=== PATIENT | female | born 1970 | race Caucasian/White ===

== ENCOUNTER 2024-12-19 18:39 | Inpatient (IN) | payer OTHER, SELFPAY ==
--- OUTSIDE RECORDS SUMMARY | 2023-06-07 01:31 | XMS_ITS | Continuity of Care Document ---
Author Organization [facility] Address [address] [address] [place] [address] Phone Care Team Providers Care Barber Instructor Name Role Phone Verito Zayas CRNA Unavailable Unavailabl e Allergies, Adverse Reactions, Alerts Substance Reaction Status Criticality No Known Allergies Active No Inform ation Medications Medication Instructions Dosage Effective Dates (start - stop) Status Comments topiramate 25 mg sprinkle capsule take 1 capsule by oral route 2 times every day (1 in the morning and 2 at night) 25 MG - Active Procedures Procedure Date Colonoscopy Flex; W/remov Les- 24 Level Iv-surg Path Gross/micro Advance Directives Directive Yes / No Effective Date File Name No Information Encounters Encounter Description Practice Location Reason(s) For Visit Diagnoses Date Provider Providers Copied on Encounter [facility], [address] [address], [place], [id number], [place] tel:[phone] [facility] No Information 4 Chana Sellers . [address] [place] [address], [facility] [address], [place], [place], [id number] , [place]. tel:[phone] Referring Provider: Robin Merchant MD, [address] [facility] [address], [place], [address] . tel:[phone] [facility], [address] [address], [place] [facility] [id number], [place] tel:[phone] [facility] GI Symptoms or Concerns (chief complaint) Personal history of colonic polypsRedundant colonColorectal polyp detected on colonoscopyEncounte r for screening for malignant neoplasm of colonBenign neoplasm of descending colon 4 Mayur Kelly. [address] [facility], [place], [place], [id number] , [place]. tel:[phone] Referring Provider: Referral Self, USE FOR SELF REFERRALS. [facility], [address] [address], [place], [id number], [place] tel:[phone] [facility] No Information 4 Ricci Armendariz. [address] [facility], [place], [place], [id number] , [place]. [phone] Family History Family Member Type Diagnosis Age At Onset Father Problem (finding) Colon polyps Father Problem (finding) Cancer, prostate Mother Problem (finding) Alcoholism Father Problem (finding) Cancer, bladder Mother Problem (finding) Crohn's disease Mother Problem (finding) Pancreatitis Immunizations Vaccine Date Status Comments zoster vaccine recombinant administered N ote: [facility] bi-directional interface ; Source: Other Registry zoster vaccine recombinant administered N ote: [facility] bi-directional interface ; Source: Other Registry SARS-COV-2 (COVID-19) vaccin e, mRNA, spike protein, LNP, preservative free, mendel-sucrose, 30 mcg/0.3 mL dose administered Note: [facility] bi-direct ional interface ; Source: Other Registry Influenza, injectable, Madin Josie Canine Kidney, preservative free, quadrivalent administered Note: DE IC bi- directional interface ; Source: Other Registry tetanus toxoid, reduced diphtheria toxoid, and acellular pertussis vaccine, adsorbed administered Note: [facility] b i-directional interface ; Source: Other Registry influenza virus vaccine, peña e, attenuated, for intranasal use administered Note: MII C bi- directional interface ; Source: Other Registry diphtheria and tetanus toxoi ds, adsorbed for pediatric use administered Note: [facility] bi -directional interface ; Source: Other Registry diphtheria, tetanus toxoids and pertussis vaccine administered Note: [facility] bi-direct ional interface ; Source: Other Registry Payers Payer name Insurance type Covered alliance party ID Noelle shah(s) [facility] [id number] Social History Type Description Quantity Date Captured Comments Sex Female Smoking Status No Information Chief Complaint And Reason For Visit No Information Reason For Referral Reason For Referral No Information History Of Present Illness Encounter Date Complaint History Of Prese nt Illness GI Symptoms or Concerns Functional Status Date Functional Assessmen t No Information Instructions Date Instruction Additional Infor mation Colon Cancer Prevention Related to Personal history of colonic polyps Colon Polyps Related to Perso nal history of colonic polyps Assessments Type Assessment Date No Information Patient Care Teams Name Effective Dates (start - stop) Status Members No Information
[2024-12-19] VITALS (11 sets, daily range): BP systolic 100–132; BP diastolic 62–73; PULSE 57–73; RESP 14–18; TEMP 35.7–36.8; O2SAT 97–100; BMI 27.4
--- NOTE | 2024-12-19 19:21 | CRLHL7_ITS ---
For Patients: As a result of the Century Cures Act, medical imaging exams and procedure reports are released immediately into your electronic medical record. You may view this report before your referring provider. If you have questions, please contact your health care provider. Indication: CHEST PAIN AND BACK PAIN Technique: CTA chest/abdomen/pelvis dissection, aortic protocol, with unenhanced CT of the chest and CTA chest/abdomen/pelvis utilizing 90 mL Isovue 370 IV contrast. 3D/MIP post-processing on an independent workstation was performed. Comparison: None Findings: Heart/vasculature: The heart is normal in size. No pericardial effusion. No coronary artery calcifications. No intramural hematoma of the thoracic aorta. Trace calcific atherosclerosis of the aorta. No dissection, aneurysm, pseudoaneurysm, penetrating atherosclerotic ulcer, acute arterial occlusion, stenosis, or active arterial bleeding. Chest: No thyroid nodules. No thoracic lymphadenopathy. No focal airspace consolidation, pleural effusion, or pneumothorax. No emphysematous or fibrotic changes. No suspicious pulmonary nodules or masses. The airways are clear. Abdomen/pelvis: Status post cholecystectomy. No significant biliary ductal dilatation. The liver, spleen, pancreas, adrenal glands, kidneys, ureters, bladder, uterus, and bilateral adnexa are unremarkable. No bowel obstruction or inflammation. The appendix is normal. Moderate stool burden throughout the colon. No free air, free fluid, or abscess. No abdominopelvic lymphadenopathy. Soft tissue/musculoskeletal: Bilateral breast implants. Tiny fat containing umbilical hernia. The bones are unremarkable for the patient`s age. Impression: Unremarkable CT chest/abdomen/pelvis with no acute aortic syndrome. Please note that all CT scans at this facility use dose modulation, iterative reconstruction, and/or weight-based dosing when appropriate to reduce radiation dose to as low as reasonably achievable. Dictated by Koby Swift MD @ 12/19/2024 8:37:09 PM (Electronically Signed)
--- NOTE | 2024-12-19 19:34 | ED_ITS ---
HPI - General Adult General Chief complaint: Chest Pain Stated complaint: Difficulty breathing, Chest pain Time Seen by Provider: 12/19/24 18:55 Source: patient Mode of arrival: ambulatory Limitations: no limitations History of Present Illness HPI narrative: 54-year-old female presenting today with chest pain. Pain started approximately 1 hour ago. She had just finished eating dinner. Pain is substernal and ra diates directly into her back. At 1 point she stated that the pain that radiated into her back was worse than the chest pain. It takes her breath away, causes her to feel sweaty and lightheaded. She states that it was quite intense for about 30 minutes, and has now subsided some but it is still present. Her shortness of breath has resolved and she is no longer diaphoretic. Patient is taking topiramate and Wellbutrin for weight loss. Past surgical history includes a cholecystectomy. She denies tobacco use. Father had an DE in his early 50s. Patient denies any history of high blood pressure, diabetes or hyperlipidemia. Related Data Home Medications ?Medication ?Instructions ?Recorded ?Confirmed another weight loss drug 12/19/24 weight loss drug 12/19/24 Allergies Allergy/AdvReac Type Severity Reaction Status Date / Time No Known Drug Allergies Allergy Verified 12/19/24 19:59 Review of Systems Status of ROS: Reports: 10 or more systems reviewed and unremarkable except as noted in History and below [facility] Social History Smoking Status: Never smoker How often do you have a drink containing alcohol: monthly or less AUDIT-C Alcohol total score: 1 Non-prescribed substance use: denies use Exam Narrative: Exam Narrative: Well-nourished well-developed patient, quite anxious. Alert and oriented. Answers questions appropriately. Mood and affect are appropriate. Thoughts are goal oriented and rational. No tangential or magical thinking noted. Patient speaks in full sentences without needing to catch her breath. HEENT: Normocephalic atraumatic. Pupils are equally round reactive to light. Extraocular muscles are intact. Conjunctivae are moist without any icterus noted. Moist mucous membranes. Posterior pharynx is normal. Neck is supple. Cardiovascular: Heart is regular rate and rhythm S1 and S2 are present without any murmurs. Lungs: Clear to auscultation bilaterally no wheezes rhonchi or rales are appreciated. Patient takes deep breaths without any discomfort. Cannot rep roduce her pain with palpation. Abdomen: Soft and nondistended with normal bowel sounds. She does have some epigastric discomfort. Extremities: Bilateral lower extremities are without edema. Skin: Well perfused without any obvious rashes. Const: Vital Signs, click to edit/add: Vital Signs - 24 hr 12/19/24 18:47 12/19/24 19:21 12/19/24 19:30 Temperature 96.3 F L Pulse Rate Pulse Rate [Pulse Oximeter] 57 L 73 Respiratory Rate 14 16 Blood Pressure [Ri ght Upper Arm] 100/68 132/73 Pulse Oximetry 97 99 100 Oxygen Delivery Me thod Room Air Room Air 12/19/24 19:37 12/19/24 19:50 Temperature Pulse Rate 63 Pulse Rate [Pulse Oximeter] Respiratory Rate 18 Blood Pressure [Ri ght Upper Arm] Pulse Oximetry 99 Oxygen Delivery Me thod Course Course ED Course: Differential diagnosis includes acute coronary syndrome, aortic dissection, GERD, pericarditis. Less likely but still in consideration would include pneumo pamela, pneumothorax. EKG, read by me, shows sinus bradycardia with a pulse of 51. Normal QRS, QTC and NV intervals. Because of the concern of aortic dissection, patient was not given an aspirin at this time. Point of care troponin 0. CT scan results returned, unremarkable. At this time 325 mg of chewable aspirin was given. Re-examination at this time I also reveals the patient is generally feeling much better, although mild substernal discomfort still exists. CBC is entirely normal. Normal lactate. Chemistries show a slightly low potassium of 3.3, remainder of chemistries are unremarkable. LFTs are slightly elevated, normal alkaline phosphatase. Normal CRP. Lipase elevated 29,227. 1 L of normal saline ordered at this time. Discussed with Dr. Amor who will accept the patient for admission. Vital Signs Vital signs: Initial Vital Signs Temperature 96.3 F L 12/19/24 18:47 Temperature Source Temporal Artery Scan 12/19/24 18:47 Pulse Rate 57 L 12/19/24 18:47 Pulse Rhythm Regular 12/19/24 18:47 Respiratory Rate 14 12/19/24 18:47 Blood Pressure 100/68 12/19/24 18:47 Blood Pressure Mean 78 12/19/24 18:47 Blood Pressure Position Sitting 12/19/24 18:47 Pulse Oximetry 97 12/19/24 18:47 Oxygen Delivery Method Room Air 12/19/24 18:47 Vital Signs Temperature 96.3 F L 12/19/24 18:47 Pulse Rate 57 L 12/19/24 18:47 Respiratory Rate 14 12/19/24 18:47 Blood Pressure 100/68 12/19/24 18:47 Pulse Oximetry 97 12/19/24 18:47 Oxygen Delivery Method Room Air 12/19/24 18:47 Temperature 96.3 F L 12/19/24 18:47 Pulse Rate 63 12/19/24 19:37 Respiratory Rate 18 12/19/24 19:50 Blood Pressure 132/73 12/19/24 19:30 Pulse Oximetry 99 12/19/24 19:37 Oxygen Delivery Method Room Air 12/19/24 19:30 Medications Administered Medications: Generic Name Dose Route Start Last Admin Trade Name Freq PRN Reason Stop Dose Admin Aspirin 324 mg 12/19/24 20:40 12/19/24 20:44 Aspirin 81 Mg Tab.Chew PO 12/19/24 20:41 324 mg ONCE ONE Administration Medical Decision Making MDM Narrative Medical decision making narrative: 54-year-old female with pancreatitis. Patient will be admitted for further management. Lab Data Lab results reviewed: Yes I reviewed the patient's lab results Labs: Lab Results 12/19/24 12/19/24 Range/Units 19:23 19:35 WBC 4.69 (4.50-11.00) K/uL RBC 4.54 (4.00-5.20) m/uL Hgb 14.0 (12.0-16.0) gm/dL Hct 43.5 (33.0-51.0) % MCV 96 (80-100) fL MCH 31 (26-34) pg MCHC 32 (32-36) gm/dL RDW Coeff of Fabian 12.5 (11.5-15.5) % Plt Count 189 (140-440) K/uL Neut % (Auto) 61.0 (42.0-72.0) % Lymph % (Auto) 30.5 (20-44) % [place] % (Auto) 6.6 (0.0-11.0) % Eos % (Auto) 1.3 (0.0-7.0) % Baso % (Auto) 0.4 (0.0-3.0) % Neut # (Auto) 2.86 (1.7-7.0) K/uL Lymph # (Auto) 1.43 (0.90-2.90) K/uL [place] # (Auto) 0.30 (0.00-0.90) K/UL Eos # (Auto) 0.06 (0.00-0.50) K/uL Baso # (Auto) 0.02 (0.00-0.30) K/uL Abs Immat Gran (auto) 0.01 (0.00-0.30) K/uL Imm/Tot Granulo (auto) 0.2 % Sodium 140 (135-149) mmol/L Potassium 3.3 L (3.6-5.1) mmol/L Chloride 105 (96-114) mmol/L Carbon Dioxide 24 (20-32) mmol/L Anion Gap 11 (7-15) mEq/L BUN 17 (7-30) mg/dL Creatinine 0.9 (0.5-1.5) mg/dL Estimated Creat Clear 68.45 Estimated GFR 77 ml/min Glucose 86 (60-115) mg/dL Lactate 1.9 (0.5-1.9) mmol/L Calcium 9.8 (8.4-10.6) mg/dL Total Bilirubin 0.4 (0.1-1.5) mg/dL Direct Bilirubin 0.2 (0.0-0.5) mg/dL AST 121 H (12-35) U/L ALT 68 H (4-35) U/L Alkaline Phosphatase 77 (40-150) U/L Troponin I < 0.01 (0.01-0.04) ng/mL C-Reactive Protein < 0.5 L (0.5-1.0) mg/dL Total Protein 7.5 (6.0-8.3) g/dL Albumin 4.6 (3.3-5.0) g/dL Lipase 07579 H (23-300) U/L POC Troponin I 0.00 L (0.01-0.04) ng/ml Imaging Data CT Chest/Ab/Pelvis: Attestation: I have reviewed the pertinent imaging results. Radiologist's impression: Technique: CTA chest/abdomen/pelvis dissection, aortic protocol, with unenhanced CT of the chest and CTA chest/abdomen/pelvis utilizing 90 mL Isovue 370 IV contrast. 3D/MIP post-processing on an independent workstation was performed. Comparison: None Findings: Heart/vasculature: The heart is normal in size. No pericardial effusion. No coronary artery calcifications. No intramural hematoma of the thoracic aorta. Trace calcific atherosclerosis of the aorta. No dissection, aneurysm, pseudoaneurysm, penetrating atherosclerotic ulcer, acute arterial occlusion, stenosis, or active arterial bleeding. Chest: No thyroid nodules. No thoracic lymphadenopathy. No focal airspace consolidation, pleural effusion, or pneumothorax. No emphysematous or fibrotic changes. No suspicious pulmonary nodules or masses. The airways are clear. Abdomen/pelvis: Status post cholecystectomy. No significant biliary ductal dilatation. The liver, spleen, pancreas, adrenal glands, kidneys, ureters, bladder, uterus, and bilateral adnexa are unremarkable. No bowel obstruction or inflammation. The appendix is normal. Moderate stool burden throughout the colon. No free air, free fluid, or abscess. No abdominopelvic lymphadenopathy. Soft tissue/musculoskeletal: Bilateral breast implants. Tiny fat containing umbilical hernia. The bones are unremarkable for the patient`s age. Impression: Unremarkable CT chest/abdomen/pelvis with no acute aortic syndrome. Discharge Plan Discharge Clinical Impression: Pancreatitis Patient Disposition: Admitted As Inpatient Condition: Stable
[2024-12-19 19:42] LABS: Lactate* 1.9 mmol/L (0.5-1.9)
--- OUTSIDE RECORDS SUMMARY | 2024-12-19 19:45 | XMS_ITS | Patient Health Record ---
Author Organization [facility] Address [address] [place] [address] Care Team Providers Care Toolroom Machinist Name Role Phone Partners, Health Primary Care Provider Unavailab rufino VU LIZAMA Unavailable [phone] No REF, per PT Unavailable Unavailable Allergies No Known Allergies Reason For Referral No Information Medications Medication SIG (Take, Route, Frequency, Duration) Notes Start Date End Date Status Topiramate 50 MG Tablet Take 1 Tablet (5 0 mg) by mouth two times a day.* Oral; Duration: 90 Days Active buPROPion HCl ER (XL) 300 MG Tablet Extended Release 24 Hour Oral; Duration: 90 Days Active Astelin 137 MCG/SPRAY Solution 2 puff in each nostril Nasally Twice a day; Duration: 30 day(s) 06/03/2024 Not-Taking methylPREDNISolone 4 MG Tablet Therapy Pack as directed Orally daily; Duration: 6 days 07/29/2024 Not-Taking Social History Tobacco Use: Social History Observation Description Date Details (start date - stop date) Never Smoker NA - NA Sex Assigned At : Social History Observation Description Sex Assigned At Female Social History Alcohol Use: Social Info Question Answer Notes Recreational drugs Recreational Drug Use: No Alcohol Screen Did you have a drink containing alcohol in the past year? Yes How often did you have 6 or more drinks on one occasion in the past year? Less than monthly (1 point) How many drinks did you have on a typical day when you were drinking in the past year? 1 or 2 drinks (0 point) How often did you have a drink containing alcohol in the past year? 2 to 3 times a week (3 points) Tobacco Use: Social Info Question Answer Notes Tobacco use/smoking Are you a nonsmoker Additional Details Category Social Info Options Details Household: Occupation Operations/purc hasing Problems Problem Type SNOMED Code ICD Code Onset Dates Problem Status W/U Status Risk Notes Problem Deviated nasal septum (166683917) Deviated nasal septum (J34.2) Active confirmed Problem Chronic tonsillitis (71621882) Chronic tonsillitis (J35.01) Active confirmed Problem Tonsil stone (2522872) Tonsil stone (J35.8) Active confirmed Vital Signs Height-cm 167.64 cm 08/26/2024 Weight-kg 72.58 kg 08/26/2024 Height 66 in 08/26/2024 Weight 160 lbs 08/26/2024 BMI 25.82 kg/m2 08/26/2024 Procedures Procedure Date Ordered Date Performed Result Body Sit e Surgery - T&A 06/03/2024 06/16/2024 07/24/24 Encounters Encounter Location Date Provider Diagnosis [facility] [address] [address] 06/03/2024 VU LIZAMA Deviated nasal septum J34.2 and Tonsil stone J35.8 [facility] [address] [place] [address] 07/24/2024 VU LIZAMA [facility] [address] [address] 08/12/2024 VU LIZAMA Tonsil stone J35.8 and Chronic tonsillitis J35.01 [facility] [address] [address] 08/26/2024 VU LIZAMA Chronic tonsillitis J35.01 [facility] [address] [place] [address] 07/29/2024 VU LIZAMA Tonsil stone J35.8 [facility] [address] [place] [address] 08/19/2024 VU GRIEBIE Assessments Encounter Date Diagnosis (ICD Code) Assessment Notes Treatment Notes Treatment Clinical Notes Section Notes 07/29/2024 Tonsil stone (ICD-10 - J35.8) 08/12/2024 Chronic tonsillitis (ICD-10 - J35.01) 08/12/2024 Tonsil stone (ICD-10 - J35.8) At this point, the patient is healing well from the tonsillectomy. I do not see the need for further restrictions in diet or activity. I have not made further specific plans for follow up, but would be happy to see the patient should there be any further concerns. 08/26/2024 Chronic tonsillitis (ICD-10 - J35.01) We discussed these exam findings and further management. Her ears were clear bilaterally. Her nose was clear anteriorly. The tonsils and fossa have healed uneventfully. I looked with a mirror at her larynx and hypopharynx which was all normal, there is no mass or pocket noted.At this point the examination was essentially normal. She may have some pain or discomfort associated with the healing process and scarring in the region where the tonsillar fossa meet the base of the tongue but there were no pocket areas or abnormal mucosa in this area with soft to palpation. I anticipate that this will continue to improve over the next 2 to months to 3 months. If it does not I would consider potential imaging at some point or even a swallow study. She will call should she have further concerns and we would be happy to see her back in the future as well 06/03/2024 Deviated nasal septum (ICD-10 - J34.2) We discussed these exam findings and further management. Her ears were clear bilaterally. She has a deviated nasal septum to the right side. Her tonsils are mild-moderate in size. Her larynx, hypopharynx, and the nasopharynx were relatively unremarkable. At this point, I suspect that her snoring/mouth breathing is related to her congestion. I have suggested the patient to utilize Astelin [place] BID to help decongest/clear her nose and to also help with her nasal breathing effectively. For her tonsil stones, we discussed the risks, benefits, and alternatives to a tonsillectomy including but not limited to the risk of a general anesthetic, and the risk of bleeding, the risk of velopharyngeal insufficiency and voice changes. At this point, it was elected to proceed with surgery and this will be scheduled per their convenience at one of the [facility]. 06/03/2024 Tonsil stone (ICD-10 - J35.8) Plan Of Treatment No Information Insurance Providers Payer Name Payer Address Payer Phone Subscriber Number Group Number Insured Name Patient Relationship to Insured Coverage Start Date Coverage End Date [facility] [address] [facility] [id number] Syeda Bray Self - patient is the insured Medical (General) History Medical History History ICD Code Conditions/Illness:: None Surgical History Surgery Date(Month/Year) Adenotonsillectomy MG 07/24/2024
--- OUTSIDE RECORDS SUMMARY | 2024-12-19 19:45 | XMS_ITS | Encounter Summary ---
Author Organization [facility] Address [address] [facility] [place] [address] Care Team Providers Care Account Resolution Analyst Name Role Phone Lorena Bray MD Primary Care Provider + [phone] Encounter Details Date Type Department Care Team (Latest Contact Info) Description 06/01/1994 Orders Only Kj, Shyanne, CASH MANAGEMENT ASSOCIATE, RAIL BONDER Social History Tobacco Use Types Packs/Day Years Used Date Smoking Tobacco: Never Assessed Comments Unknown Sex and Gender Information Value Date Recorded Sex Assigned at Not on file Legal Sex Female 4:54 AM CDT Gender Identity Female 10/20/2020 8:09 AM CDT Sexual Orientation Straight 10/20/2020 8: 09 AM CDT documented as of this encounter Plan of Treatment Upcoming Encounters Date Type Department Care Team (Late st Contact Info) Description 12/28/2024 3:30 PM PHONE REPRESENTATIVE Tele[facility] [address], [address] [place] [address] Lorena Rosen MD [address] [place] [phone] documented as of this encounter Visit Diagnoses Not on filedocumented in this encounter Care Teams Account Resolution Analyst Relationship Specialty Start Date End Date Lorena Bray MD PCP - General 10/13/15 documented as of this encounter
--- OUTSIDE RECORDS SUMMARY | 2024-12-19 19:45 | XMS_ITS | Encounter Summary ---
Author Organization [facility] Address [address] [place] [address] Care Team Providers Care Apprentice Cosmetologist Name Role Phone Lorena Bray MD Primary Care Provider + [phone] Encounter Details Date Type Department Care Team (Late st Contact Info) Description 04/03/1999 Orders Only [facility] Shorty Thakkar, REMEDIATION TECHNICIAN, CNM Social History Tobacco Use Types Packs/Day Years [...] st Contact Info) Description 12/28/2024 3:30 PM LICENSED PLUMBER Telemedicine [facility] [address] [facility], [address] [place], [place] [address] Lorena Rsoen MD [address] [place] [phone] documented as of this encounter Visit Diagnoses Not on filedocumented in this encounter Care Teams Apprentice Cosmetologist Relationship Specialty Start Date End Date Lorena Bray MD PCP - General 10/13/15 documented as of this encounter
--- OUTSIDE RECORDS SUMMARY | 2024-12-19 19:45 | XMS_ITS | Encounter Summary ---
Author Organization [email or web address] Address [address] [facility] [place] [address] Care Team Providers Care Bowl Turner Name Role Phone Lorena Bray MD Primary Care Provider + [phone] Encounter Details Date Type Department Care Team (Latest Contact Info) Description 10/19/1998 Orders Only Evelia Valdez MD Social History Tobacco Use Types Packs/Day Years Used Date Smoking Tobacco: Never Assessed Comments Unknown Sex and Gender Information Value Date Recorded Sex Assigned at Not on file Legal Sex Female 4:54 AM CDT Gender Identity Female 10/20/2020 8:09 AM CDT Sexual Orientation Straight 10/20/2020 8 :09 AM CDT documented as of this encounter Plan of Treatment Upcoming Encounters Date Type Department Care Team (Late st Contact Info) Description 12/28/2024 3:30 PM [employer] Telemedicine [facility] [address], [address] [place], [place] [id number] Lorena Rosen MD [address] [place] [phone] documented as of this encounter Visit Diagnoses Not on filedocumented in this encounter Care Teams Bowl Turner Relationship Specialty Start Date End Date Lorena Bray MD PCP - General 10/13/15 documented as of this encounter
--- OUTSIDE RECORDS SUMMARY | 2024-12-19 19:45 | XMS_ITS | Clinical Summary ---
Author Organization [facility] Address [address] [place] [address] Care Team Providers Care Farm Management Professor Name Role Phone Lorena Bray MD Primary Care Provider + [phone] Source Comments You are receiving this document as you are listed as the primary care provider,follow-up provider, or the patient has been referred to you for consultation.This is in compliance with the Medicare and[facility] EHR Incentive Program,which states Providers who transition their patient to another setting of careor provider of care or refers their patient to another provider of care shouldprovide summary care record for each transition of care or referral. [facility] Allergies No known active allergies Medications calcium carbonate 600 MG tablet Take 1 Tablet (600 mg) by mouth daily. Active multivitamin with minerals tablet Take 1 Tablet by mouth daily. Active Collagen-Vitamin C-Biotin (COLLAGEN 1500/C OR) Active oxyCODONE (ROXICODONE) 1 MG/1ML solution Take by mouth. 07/24/2024 Active buPROPion (WELLBUTRIN XL) 300 MG 24 hour release tabletIndication s:BMI 29.0-29.9,adult Take 1 Tablet (300 mg) by mouth daily. 90 Tablet 3 07/28/2024 Active topiramate (TOPAMAX) 50 MG tabletIndication s:BMI 29.0-29.9,adult Take 1 Tablet (50 mg) by mouth two times a day. 180 Tablet 3 07/28/2024 6 Active Active Problems Problem Noted Date Diagnosed Date Adenomatous polyp of ascending colon 06/05/2022 Overview (06/05/2022): 22 mm BMI 29.0-29.9,adult 05/21/2020 Resolved Problems Problem Noted Date Diagnosed Date Resolved Date Body mass index (BMI) of 28.0-28.9 in adult 06/28/2022 12/04/2023 Vitamin D deficiency 10/26/2020 022 Vaginal yeast infection 09/22/201403/14 Overview (09/15/2015): Recurrent infections H/O breast implant 09/03/2012 5 Molluscum contagiosum 05/30/20102014 Encounter for sterilization 06/22/2009 09/22/2014 Overview (10/03/2016): LW Onset: [id number] ; Tubal Ligation Elective Viral warts 06/22/2009 09/22/2014 Overview (10/03/2016): LW Onset: April2009 ; Wart Genital Normal delivery 09/16/2006 09/22/2014 Overview (10/03/2016): LW Modifier: x 3 ; Normal Spontaneous Vaginal Delivery Headache 09/25/2000 05/21/2020 Encounters Date Type Department Care Team Description 12/02/2024 malissa Dorantes [address] [place] [phone] from Last 3 Months Immunizations Immunization Administration Dates Next Due DT Ped 09/11/1988 DTP 04/24/1978,04/24/1978 Flu Vac Preserv Free (3+yrs) 03/13/2017 HepB Adult (Heplisav-B, 19+ yrs, 2 dose series) 12/04/2023 Influenza (Flucelvax), Prese rv Free QIV 12/12/2022 Influenza IIV4 (Quadrivalent ) 0.5mL (84331) 11/05/2021,10/24/2020,10/15/2013 Influenza LAIV (Nasal, 2-49 yrs) 10/26/2008 Influenza LAIV3 2-49 years (Flumist) 10/27/2008 Influenza ccIIV3 6 months+ (Flucelvax) 12/04/2023 OPV, Trivalent (Orimune or tOPV) 04/24/1978,04/11 Pfizer Bivalent 12+ 11/05/2021 Pfizer COVID-19 12+ (Comirnaty) 12/04/2023,12/12 Pfizer Monovalent 12+ Purple Top 12/19/2020,04/0 02/2020,04/23/2020 TDAP (ADACEL) 05/30/2010 Td 09/16/2000,02/11/2000,09/11/1988 Tdap 10/24/2020 Varicella 05/11/1997(Deferred: Immune by Amaya barrera) Zoster RZV (Shingrix) 02/06/2023,12/12/2022 Family History Medical History Relation Name Comments Cancer Father Osmel skin Heart Disease Father Osmel High Blood Pressure Father Osmel High Cholesterol Father Osmel Kidney/Bladder Disease Father Osmel Cancer Mother Janet skin High Blood Pressure Mother Jnaet High Cholesterol Mother Janet No Known Problems Brother Cancer Maternal Grandmother Angelic Lung Heart Disease Paternal Grandfather Osmel Cancer Paternal Grandmother Cammy Relation Name Status Comments Father Osmel Alive Mother Janet Alive Brother Alive Maternal Grandfather Maternal Grandmother Angelic Paternal Grandfather Osmel Paternal Grandmother Cammy c/o P[place] Social History Tobacco Use Types Packs/Day Years Used Date Smoking Tobacco: Never Smokeless Tobacco: Never Tobacco Cessation:Counseling Given: Not Answered Alcohol Use Standard Drinks/Week Comments Yes 2 (1 standard drink = 0.6 oz pur e alcohol) 2-3 per week PHQ-2 Answer Date Recorded PHQ-2 Score 0 07/02/2024 Hunger Vital Sign Answer Date Recorded Within the past 12 months, y ou worried that your food would run out before you got the money to buy more. Never true 11/30/19 24 Within the past 12 months, t he food you bought just didn't last and you didn't have money to get more. Never true 11/30/2023 PRAPARE - Transportation Answer Date Re corded In the past 12 months, has l ack of transportation kept you from medical appointments or from getting medications? No 11/11 In the past 12 months, has l ack of transportation kept you from meetings, work, or from getting things needed for daily living? No 11/30/2023 Housing Stability Vital Sign Answer Chris e Recorded In the last 12 months, was t here a time when you were not able to pay the mortgage or rent on time? No 11/30/2023 In the past 12 months, how m any times have you moved where you were living? 0 11/30/2023 At any time in the past 12 m [facility], were you homeless or living in a skilled nursing (including now)? 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 Not on file Not on file Not on file Last Filed Vital Signs Vital Sign Reading Time Taken Comments Blood Pressure 131/71 07/02/2024 3:48 PM CDT Pulse 59 07/02/2024 3:48 PM CDT Temperature 36.5 C (97.7 F) 12/05/2022 10:59 AM CDT Respiratory Rate 16 05/31/2022 9:15 AM CDT Oxygen Saturation 100% 12/05/2022 10:59 AM CDT Inhaled Oxygen Concentration - - Weight 78.5 kg (173 lb) 07/28/2024 9:12 AM CDT Height 167.6 cm (5' 6) 07/28/2024 9:12 AM CDT Body Mass Index 27.92 07/28/2024 9:12 AM CDT Plan of Treatment Upcoming Encounters Date Type Department Care Team (Late st Contact Info) Description 12/28/2024 3:30 PM EVAPORATIVE COOLER INSTALLER Telemedicine [facility] [address], [address] [place] [address] Lorena Rosen MD [address] [place] [phone] Health Maintenance Due Date Last Done Comments IPV (Polio) Vaccine (2 of 3 - 4-dose series) 05/22/1978 04/24/1978, 04/24/1978 Pneumococcal Vaccine 50+ Yrs (1 of 1 - PCV) 2022 HepB Vaccine (2) 01/01/2024 12/04/2023 Influenza Vaccine (#1) 2024 , 12/12/2022, 11/05/2021, Additional history exists Adult Preventive Visit 12/03/2024 , 10/24/2020, 03/18/2018, Additional history exists Mammogram 03/26/2025 03/26/2024, 03/14, 03/11/2023, Additional history exists Diabetes Screening- (based on age and BMI) 12/03/2026 12/04/2023, 01/16/2021 Colonoscopy 06/06/2028 06/07/2023 (Comp leted), 05/31/2022 Cervical Cancer Screening 12/03/20282023, 12/04/2023, 03/18/2018, Additional history exists Cholesterol 12/03/2028 12/04/2023, 10/12, 03/18/2018, Additional history exists DTaP/Tdap/Td Vaccine (5 - Tdap) 10/24/2030 10/24/2020, 05/30/2010, 09/16/2000, Additional history exists RSV Vaccine (1 - 1-dose 75+ series) 11/02/2047 HIV Screening (Preventive Services) Completed 07/20/2009, 03/25/2002 Hep C Screening (Preventive Services) Completed 07/20/2009 Zoster/Shingles Vaccine Completed 02/06/2023, 12/12 COVID-19 Vaccine Completed 12/04/2023, 02/2022, 11/05/2021, Additional history exists HepA Vaccine Aged Out No longer eligi ble based on patient's age to complete this topic Hib Vaccine Aged Out No longer eligi ble based on patient's age to complete this topic MCV4 Vaccine Aged Out No longer eligi ble based on patient's age to complete this topic Meningococcal B Vaccine Aged Out No l onger eligible based on patient's age to complete this topic Procedures Procedure Name Priority Date/Time Associated Diagnosis Comments MAMMOGRAM SC 03/26/2024 HGB A1C Routine 12/04/2023 2:19 PM CDT Screening for diabetes mellitus LIPID PANEL & DIRECT LDL (IF NEEDED) Routine 12/04/2023 2:19 PM CDT Hypercholesteremia CYTOLOGY (PAP) Routine 12/04/2023 2:09 PM CDT Screening for malignant neoplasm of cervix ENDOSCOPY, COLON, SCREENING/DIAGNOSTI C Routine 05/31/2022 7:39 AM CDT Preventative health care HIV ANTIBODY Routine 07/20/2009 9:08 AM CDT HEPATITIS C ANTIBODY, WITH REFLEX (ANTI-HCV) Routine 07/20/2009 9:08 AM CDT from Last 3 Months or Most Recently Relevant to Health Maintenance Results * MAMMOGRAM SC (03/26/2024) us Interface Provider DUMMY/OTHER/AR Final Resu lt * Lipid Panel and Direct LDL(If Needed) (12/04/2023 2:19 PM CDT) Cholesterol 193 0 - 199 mg/dL 12/04/2023 8:23 PM CDT [facility] Triglyceride 110 <=149 mg/dL 12/04/2023 8:23 PM CDT [facility] HDL Cholesterol 64 >=40 mg/dL 8:23 PM CDT [facility] LDL, Calculated 107 <130 mg/dL 8:23 PM CDT [facility] Non HDL Chol, Calculated 129 <=159 mg/dL 12/04/2023 8:23 PM CDT [facility] Cholesterol/HDL Ratio 3.0 <=5.0 12/04/2023 8:23 PM CDT [facility] Hours Fasting 3.0 8 - 12 Hours 12/04/2023 8:23 PM CDT [facility] Blood Venipuncture / Unknown 12/04/2023 2:19 PM CDT 12/04/2023 2:20 PM CDT Katja Palencia DO LAB_1 Final Result [facility] [address] [place], [place] [address] [address] [place] [address], [place] * Hgb A1C (12/04/2023 2:19 PM CDT) Hemoglobin A1C 5.2 <=5.6 % 12/05/2023 9:13 AM CDT [facility] Estimated Average Glucose (Calc) 103 < 117 mg/dL 12/05/2023 9:13 AM CDT [facility] Comment:Estimated average gl ucose (eAG) converts A1c into glucose units (mg/dL) and estimates average glucose over the past approximately 3 months. The eAG reference interval (<117 mg/dL) corresponds to an A1c of <5.7%. Blood Venipuncture / Unknown 12/04/2023 2:19 PM CDT 12/04/2023 2:20 PM CDT us Katja Palencia DO LAB_1 Final Result Performing Organization Address City/[facility]/ZIP Co de Phone Number [facility] [id number] [place] [address] * PAP Test (12/04/2023 2:09 PM CDT) Case Report Pap Case: [id number] Authorizing Provider: Katja Palencia DO Collected: 12/04/2023 1409 Ordering Location: [facility] Received: 12/04/2023 1520 First Screen: Jillian Caldera Rescreen: Va Starkey, CT (ASCP) Specimen: Pap Test, Routine, Cervix/Endocervix 01/02/2024 2:12 PM EVAPORATIVE COOLER INSTALLER [facility] Pap Specimen Adequacy Satisfactory for evaluation, endocervical/armijo sformation zone component absent. 01/02/2024 2:12 PM EVAPORATIVE COOLER INSTALLER [facility] Pap Interpretation (NILM) Negative for intraepithelial lesion or malignancy. 01/02/2024 2:12 PM EVAPORATIVE COOLER INSTALLER [facility] at 1412 EVAPORATIVE COOLER INSTALLER Pap Disclaimer The Pap test is a screening test to aid in the detection of cervical and vaginal cancers and their precursor lesions. It is not a diagnostic procedure and should not be used as the sole means of detecting malignancy. Both false-positive and false-negative results may occur. 01/02/2024 2:12 PM EVAPORATIVE COOLER INSTALLER [facility] Gross Description The specimen is received in SurePath fixative and properly labeled. 1 Pap-stained SurePath slide is prepared. 01/02/2024 2:12 PM EVAPORATIVE COOLER INSTALLER [facility] Embedded Images 2:12 PM EVAPORATIVE COOLER INSTALLER [facility] Other Specimen Type ENTIRE ENDOCERVIX / Unknown 12/04/2023 2:09 PM CDT 12/04/2023 3:24 PM CDT Comment:LMP: No LMP recorded . Patient has had an ablation. Katja Palencia DO LAB PATHOLOGY Final Result Performing Organization Address City/State/[facility] de Phone Number [facility] [address] * Endoscopy, Colon, Screening/Diagnostic (05/31/2022 7:39 AM CDT) Anatomical Region Laterality Modality Other 05/31/2022 7:39 AM CDT Narrative 05/31/2022 7:39 AM CDT Patient Name: Syeda Blankenship Procedure Date: 05/31/2022 7:39 AM Date of : 1970 Admit Type: Outpatient Age: 51 Gender: Female Note Status: Finalized Attending MD: Michael Higgins MD Procedure: Colonoscopy Indications: Index average-risk screening for colorectal malignant neoplasm. No family history of colorectal cancer. Providers: Michael Higgins MD, Barb Escobar MD: Medicines: Fentanyl 200 micrograms IV, Midazolam 8 mg IV Complications: No immediate complications. Procedure: After I obtained informed consent, the scope was passed under direct vision. Throughout the procedure, the patient's blood pressure, pulse, and oxygen saturations were monitored continuously. The [id number] was introduced through the anus and advanced to the terminal ileum, with identification of the appendiceal orifice and IC valve. The colonoscopy was performed with difficulty due to significant looping. Successful completion of the procedure was aided by increasing the dose of sedation medication and applying abdominal pressure. The patient tolerated the procedure well. The quality of the bowel preparation was good. The terminal ileum, the ileocecal valve, the appendiceal orifice and the rectum were photographed. Findings: The perianal and digital rectal examinations were normal. The terminal ileum appeared normal. Four flat and sessile polyps were found in the ascending colon and cecum. The polyps were 4 to 11 mm in size. These polyps were removed with a saline injection-lift technique using a cold snare. Resection and retrieval were complete. A 22 mm polyp was found in the ascending colon. The polyp was Mi classification IIa (superficial, elevated) and met NICE I suggesting a serrated polyp. Preparations were made for mucosal resection. Eleview was injected with adequate lift of the lesion from the muscularis propria. Piecemeal mucosal resection using a snare with suction (via the working channel) retrieval was performed. A 28 mm area was resected. Resection and retrieval were complete. The colon wall down and distal to the resection site was tattooed with an injection of Spot (carbon black). Non-bleeding external hemorrhoids were found during retroflexion. The hemorrhoids were small. No additional abnormalities were found on retroflexion. The exam was otherwise without abnormality. Moderate Sedation: Moderate (conscious) sedation was administered by the endoscopy nurse and supervised by the endoscopist. The patient's oxygen saturation, heart rate, blood pressure and response to care were monitored. Total physician intraservice time was 20 minutes. This time is the duration from the initial medication administration until the supervisor cured meats assists with initial maneuvers (biopsy / polypectomy / etc.), or if no maneuvers are performed, until the endoscopist leaves the room. Impression: - The examined portion of the ileum was normal. - Four 4 to 11 mm polyps in the ascending colon and in the cecum, removed using injection-lift and a cold snare. Resected and retrieved. - One 22 mm polyp in the ascending colon, removed with mucosal resection. Resected and retrieved. Tattooed. - Non-bleeding external hemorrhoids. - The examination was otherwise normal. Recommendation: - Await pathology results. - Repeat colonoscopy in 1 year for surveillance based on pathology results. - Future colonoscopies should be done with propofol. - First degree relatives (siblings, children) should have an index screening colonoscopy no later than age 40. - Resume previous diet today. - Avoid ibuprofen, naproxen, or other non-steroidal anti-inflammatory drugs for 2 weeks. - Continue present medications. - Thanks for the kind referral. Procedure Code(s): --- Professional --- 24565, 22, Colonoscopy, flexible; with endoscopic mucosal resection 94727, 59, Colonoscopy, flexible; with removal of tumor(s), polyp(s), or other lesion(s) by snare technique 76862, 59, Colonoscopy, flexible; with directed submucosal injection(s), any substance G0500, Moderate sedation services provided by the same physician or other qualified health assurance services manager health care performing a gastrointestinal endoscopic service that sedation supports, requiring the presence of an independent trained observer to assist in the monitoring of the patient's level of consciousness and physiological status; initial 15 minutes of intra-service time; patient age 5 years or older (additional time may be reported with [address]67, as appropriate) Diagnosis Code(s): --- Professional --- K63.5, Polyp of colon Z12.11, Encounter for screening for malignant neoplasm of colon K64.4, Residual hemorrhoidal skin tags CPT copyright 2020 [employer]. All rights reserved. The codes documented in this report are preliminary and upon hospital coder review may be revised to meet current compliance requirements. Michael Higgins MD 05/31/2022 9:02:03 AM Number of Addenda: 0 Note Initiated On: 05/31/2022 7:39 AM Endoscopy Report Procedure Note Michael Higgins MD - 05/31/2022 Patient Name: Syeda Blankenship Procedure Date: 05/31/2022 7:39 AM Date of : 1970 Admit Type: Outpatient Age: 51 Gender: Female Note Status: Finalized Attending MD: Michael Higgins MD Procedure: Colonoscopy Indications: Index average-risk screening for colorectal malignant neoplasm. No family history of colorectal cancer. Providers: Michael Higgins MD, Barb Hinton Referring MD: Medicines: Fentanyl 200 micrograms IV, Midazolam 8 mg IV Complications: No immediate complications. Procedure: After I obtained informed consent, the scope was passed under direct vision. Throughout the procedure, the patient's blood pressure, pulse, and oxygen saturations were monitored continuously. The [id number] was introduced through the anus and advanced to the terminal ileum, with identification of the appendiceal orifice and IC valve. The colonoscopy was performed with difficulty due to significant looping. Successful completion of the procedure was aided by increasing the dose of sedation medication and applying abdominal pressure. The patient tolerated the procedure well. The quality of the bowel preparation was good. The terminal ileum, the ileocecal valve, the appendiceal orifice and the rectum were photographed. Findings: The perianal and digital rectal examinations were normal. The terminal ileum appeared normal. Four flat and sessile polyps were found in the ascending colon and cecum. The polyps were 4 to 11 mm in size. These polyps were removed with a saline injection-lift technique using a cold snare. Resection and retrieval were complete. A 22 mm polyp was found in the ascending colon. The polyp was Mi classification IIa (superficial, elevated) and met NICE I suggesting a serrated polyp. Preparations were made for mucosal resection. Eleview was injected with adequate lift of the lesion from the muscularis propria. Piecemeal mucosal resection using a snare with suction (via the working channel) retrieval was performed. A 28 mm area was resected. Resection and retrieval were complete. The colon wall down and distal to the resection site was tattooed with an injection of Spot (carbon black). Non-bleeding external hemorrhoids were found during retroflexion. The hemorrhoids were small. No additional abnormalities were found on retroflexion. The exam was otherwise without abnormality. Moderate Sedation: Moderate (conscious) sedation was administered by the endoscopy nurse and supervised by the endoscopist. The patient's oxygen saturation, heart rate, blood pressure and response to care were monitored. Total physician intraservice time was 20 minutes. This time is the duration from the initial medication administration until the supervisor cured meats assists with initial maneuvers (biopsy / polypectomy / etc.), or if no maneuvers are performed, until the endoscopist leaves the room. Impression: - The examined portion of the ileum was normal. - Four 4 to 11 mm polyps in the ascending colon and in the cecum, removed using injection-lift and a cold snare. Resected and retrieved. - One 22 mm polyp in the ascending colon, removed with mucosal resection. Resected and retrieved. Tattooed. - Non-bleeding external hemorrhoids. - The examination was otherwise normal. Recommendation: - Await pathology results. - Repeat colonoscopy in 1 year for surveillance based on pathology results. - Future colonoscopies should be done with propofol. - First degree relatives (siblings, children) should have an index screening colonoscopy no later than age 40. - Resume previous diet today. - Avoid ibuprofen, naproxen, or other non-steroidal anti-inflammatory drugs for 2 weeks. - Continue present medications. - Thanks for the kind referral. Procedure Code(s): --- Professional --- 57696, 22, Colonoscopy, flexible; with endoscopic mucosal resection 23433, 59, Colonoscopy, flexible; with removal of tumor(s), polyp(s), or other lesion(s) by snare technique 72344, 59, Colonoscopy, flexible; with directed submucosal injection(s), any substance G0500, Moderate sedation services provided by the same physician or other qualified health assurance services manager health care performing a gastrointestinal endoscopic service that sedation supports, requiring the presence of an independent trained observer to assist in the monitoring of the patient's level of consciousness and physiological status; initial 15 minutes of intra-service time; patient age 5 years or older (additional time may be reported with 89604, as appropriate) Diagnosis Code(s): --- Professional --- K63.5, Polyp of colon Z12.11, Encounter for screening for malignant neoplasm of colon K64.4, Residual hemorrhoidal skin tags CPT copyright 2020 [employer]. All rights reserved. The codes documented in this report are preliminary and upon hospital coder review may be revised to meet current compliance requirements. Michael Higgins MD 05/31/2022 9:02:03 AM Number of Addenda: 0 Note Initiated On: 05/31/2022 7:39 AM Endoscopy Report Susanna Rushing MD ET GI PROCEDURE ORDERABLES Fi nal Result * HIV ANTIBODY (07/20/2009 9:08 AM CDT) HIV 1/HIV 2 Non-React No normal range HP CONVERSION 07/20/2009 9:08 AM CDT Talita Munguia MD LAB_1 Final Result HP CONVERSION * Hepatitis C Antibody, with Reflex (07/20/2009 9:08 AM CDT) Hepatitis C Antibody Non-React No normal range HP CONVERSION 07/20/2009 9:08 AM CDT Talita Munguia MD LAB_1 Final Result HP CONVERSION from Last 3 Months or Most Recently Relevant to Health Maintenance Insurance HP SELF INSURED LEVEL FUNDED Care Teams Farm Management Professor Relationship Specialty Start Date End Date Lorena Bray MD PCP - General 10/13/15
--- OUTSIDE RECORDS SUMMARY | 2024-12-19 19:45 | XMS_ITS | Encounter Summary ---
Author Organization [facility] Address [address] [place] [address] Care Team Providers Care Tread Builder Name Role Phone Lorena Bray MD Primary Care Provider + [phone] Encounter Details Date Type Department Care Team (Late st Contact Info) Description 12/02/2024 [address] [place] [address] Social History Tobacco Use Types Packs/Day Years Used Date Smoking Tobacco: Never Smokeless Tobacco: Never Alcohol Use Standard Drinks/Week Comments Yes 2 [...] any time in the past 12 m onths, were you homeless or living in a fci (including now)? 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 To recap: you were treated for Viral Sinusitis on 12/02. I amso sorry you continue to feel miserable! You continue to have pain and pressure behind your eyes and through your temples. I would recommend taking Ibuprofen 600 mg with food, every 6-8 hours for thenext 3 days to see if this helps bring down your inflammation. Take good care. NJ Nguyen * LANE MILLAN PROVIDER - 12/02/2024 6:[address] Treatment Plan Diagnosis Viral Sinusitis Visit Date December 02, 2024 Syeda Blankenship Date of : 74 Provider Rocio Starkey, Nurse Practitioner Note From Provider Nadeem Landa,Let?? get you feeling better! Based on your current symptoms, your sinus infection is caused by a virus. This can make you feel pretty miserable, but the good news is it will go away on its own without antibiotics. Make sure to read your treatment plan below for ways to manage symptoms. Please discontinue use of NyQuil and instead start the prescribed nasal spray. If your symptoms don?? start to improve as expected 10 days after the onset, please select Help in your treatment plan to Request a Follow Up. Get some great rest - your body is working so hard to clear this infection!Rocio LUNCH TRUCK OPERATOR Treatment Plan To get you feeling better, I recommend using specific nvxv-auk-oqffaio medications to target yoursymptoms, which may spinning frame changer time as your immune system fights the virus and your body heals. I also senta prescription for a nasal steroid spray to [id number] to help reduce sinus painand pressure. Thenasal steroid spray is also available over the counter, so you may want to check with your pharmacy to seewhich option costs less. If you have questions, select Help to Requesta Follow-up and we??l discuss next steps. Order(s) fluticasone propionate 50 mcg/actuation spray,suspension Mason 1 spray into both nostrils twice a day as directed Note: $patientNotes Refills: None Sent To: [facility] [address] [place] [address] Treatment Plan Self Care Tip Topics Symptom Relief with Ibuprofen Stay Hydrated Reduce Sinus Pressure with a Nasal Steroid Mason How to Use Your Nasal Steroid Warm Packs Steam Therapy Humidify What to Expect Let?? get you feeling better by managing your symptoms while your body fights the virus. We??l focuson reducing inflammation, which will help relieve sinus pain and pressure, and thinning and draining themucus your body is making to fight the infection. Keep in mind that it?? normal for the color of your mucusto change while your immune system is fighting the virus. By following the recommendations in the Treatmenttab, your symptoms should start to improve in about a week.Follow-up care: We offer follow-up care for 7 days, so if you have any questions during that time, selectHelp to Request aFollow-up. If your symptomsworsen or don?? improve in the expected time frame, complete a new visit so we canassess your current symptoms and discuss next steps. What to Watch Out For Give us a call immediately if you experience: ??? Vision changes ??? Redness occurring in the face ??? Worsening pain ??? Fever higher than 103.0 degrees Fahrenheit My Conditions, Orders, Allergies as of December 02, 2024 Standard condition list None Current orders fluticasone propionate (fluticasone propionate) Topamax (topiramate) Allergies None [facility] Information [facility] We are an online clinic open 03/09. If you have any questions or comments about this visit, please call or email [email or web address] documented in this encounter Plan of Treatment Upcoming Encounters Date Type Department Care Team (Late st Contact Info) Description 12/28/2024 3:30 PM BILL PEDDLER Telemedicine [facility] [address], [address] [place], [place] [id number] Lorena Rosen MD [address] [place] [address] [phone] documented as of this encounter Visit Diagnoses Diagnosis Acute sinusitis, unspecified documented in this encounter Care Teams Tread Builder Relationship Specialty Start Date End Date Lorena Bray MD PCP - General 10/13/15 documented as of this encounter
--- OUTSIDE RECORDS SUMMARY | 2024-12-19 19:45 | XMS_ITS | Clinical Summary ---
Author Organization [facility] Address [address] [place] [address] Care Team Providers Care Hair Rooting Machine Operator Name Role Phone Sakshiyuridia Socorro Kinga MAURO Primary Care Provider [phone] Allergies No known active allergies Medications buPROPion XL (WELLBUTRIN XL) 150 mg oral extended release tablet 24 HR Take 300 mg by mouth Daily. 04/13/2024 Active calcium carbonate, 600 mg elemental calcium, 600 mg calcium (1,500 mg) oral tablet Take 600 mg by mouth Daily. Active topiramate (TOPAMAX) 50 mg oral tablet Take 50 mg by mouth twice a day. 04/13/2024 Active collagen/biotin/ ascorbic acid (COLLAGEN 1500 PLUS C ORAL) Take by mouth. Active multivitamin (CERTAVITE) 18-400 mg-mcg oral tablet Take 1 tablet by mouth once daily. Active acetaminophen (TYLENOL) 160 mg/5 mL oral Liquid liquid Take 15 mL (480 mg) by mouth every 6 (six) hours as needed. 450 mL 07/24/2024 10:28 AM CDT 07/24/2024 Active oxyCODONE (ROXICODONE) 5 mg/5 mL oral solution Take 5 mL (5 mg) by mouth every 4 (four) hours as needed. 125 mL 07/24/2024 10:28 AM CDT 07/24/2024 Active Active Problems No known active problems Family History Medical History Relation Comments Breast Cancer Neg Family Hx Social History Tobacco Use Types Packs/Day Years Used Date Smoking Tobacco: Never Smokeless Tobacco: Never Tobacco Cessation:Counseling Given: Not Answered Alcohol Use Standard Drinks/Week Comments Yes 2 (1 standard drink = 0.6 oz pur e alcohol) Comments Unknown Sex and Gender Information Value Date Recorded Sex Assigned at Not on file Legal Sex Female 11:29 AM CDT Gender Identity Not on file Sexual Orientation Not on file Last Filed Vital Signs Vital Sign Reading Time Taken Comments Blood Pressure 141/73 07/24/2024 11:10 AM CDT Pulse 66 07/24/2024 11:10 AM CDT Temperature 36.1 C (97 F) 07/24/2024 11:10 AM CDT Respiratory Rate 16 07/24/2024 11:1 0 AM CDT Oxygen Saturation 97% 07/24/2024 11: 10 AM CDT Inhaled Oxygen Concentration - - Weight 79.7 kg (175 lb 12.8 oz) 07/17/2024 3:41 PM CDT Height 167.6 cm (5' 6) 07/17/2024 3:41 PM CDT Body Mass Index 28.37 07/17/2024 3:41 PM CDT Plan of Treatment Health Maintenance Due Date Last Done Comments Colonoscopy 1972 Diabetes Screening 1972 Hepatitis C Screening 1972 Lipid Screening 1972 Pap Smear 1972 Anxiety Screening (GUILLERMO-2) 1973 Depression Assessment (PHQ-2) 1973 Pneumococcal 50+ Years (1 of 1 - PCV) 2022 Influenza Vaccine (#1) 2024 , 12/12/2022, 11/05/2021, Additional history exists Yearly Review of HCD 06/18/2025 06/18/2024 Mammogram Screening 03/26/2026 03/26/2024, 03/11/2023, 03/08/2022, Additional history exists Adult Tetanus Booster 10/24/2030 10/24/2020 , 05/30/2010, 09/16/2000, Additional history exists RSV Vaccines (1 - 1-dose 75+ series) 11/02/2047 Zoster Vaccine Completed 02/06/2023, 12/12/2022 COVID-19 Vaccine Completed 12/04/2023, 02/2022, 11/05/2021, Additional history exists Meningococcal B Vaccine Aged Out No l onger eligible based on patient's age to complete this topic Medical Devices Implanted Type Area Spinneret Person Device Identifier Shelf Expiration Date Model / Serial / Lot Stereo Bx/Hydromark T3-07/21/2020 Implanted:Qty: 1 on 07/21/2020 by Bhavik Klein MD Clip / / [id number] Procedures Procedure Name Priority Date/Time Associated Diagnosis Comments MAMMO GAL SCREENING BI Routine 03/26/2024 3:34 PM DIRECTOR OF VIDEO ANALYTICS Screening mammogram for breast cancer from Last 3 Months or Most Recently Relevant to Health Maintenance Results * MAMMO GAL SCREENING BI (03/26/2024 3:34 PM DIRECTOR OF VIDEO ANALYTICS) Anatomical Region Laterality Modality Breast Bilateral Mammography Impressions 03/26/2024 3:39 PM DIRECTOR OF VIDEO ANALYTICS : There is no mammographic evidence of malignancy. RECOMMENDATION: - A screening mammogram in 1 year. BI-RADS: Overall: 2 - Benign The patient will be notified of the results. REPORT SIGNED BY Mariano Espinoza MD Narrative 03/26/2024 3:39 PM DIRECTOR OF VIDEO ANALYTICS EXAM: MAMMO GAL SCREENING BI REASON FOR EXAM: Routine screening mammogram COMPARISON: Compared to: 03/11/2023 MAMMO GAL SCREENING BI, 03/08/2022 MAMMO GAL SCREENING BI, and 07/21/2020 MAMMO DIGITAL SCREENING BI TECHNIQUE: Craniocaudal and oblique digital views with the implant in place and displaced were obtained. Tomosynthesis technique was also utilized. Current study was evaluated with Computer Aided Detection (CAD) system. FINDINGS: There are bilateral breast implants that are stable. There are scattered areas of fibroglandular density. There is a biopsy marking clip present in the right breast. No significant masses, calcifications, or other findings are seen. There has been no significant interval change. us Socorro Salvador NP MAMMO ORDERABLE Final Result from Last 3 Months or Most Recently Relevant to Health Maintenance Insurance [employer] OPEN ACCESS/CHOICE [employer] [id number] [place] [address] [employer] [id number] Care Teams Hair Rooting Machine Operator Relationship Specialty Start Date End Date Socorro Salvador NP [address] [place] [id number] PCP - General Nurse Practitioner 07/09/19
--- OUTSIDE RECORDS SUMMARY | 2024-12-19 19:45 | XMS_ITS | Encounter Summary ---
Author Organization [facility] Address [address] [facility] [place] [address] Care Team Providers Care Restaurant Line Cook Name Role Phone Lorena Bray MD Primary Care Provider + [phone] Encounter Details Date Type Department Care Team (Latest Contact Info) Description 08/21/1994 Orders Only Kandi Ortega, EMMA, CNM Social History Tobacco Use Types Packs/Day [...] st Contact Info) Description 12/28/2024 3:30 PM FIRER LOW PRESSURE Telemedicine [facility] [address], [address] [place] [address] Lorena Rosen MD [address] [place] [phone] documented as of this encounter Visit Diagnoses Not on filedocumented in this encounter Care Teams Restaurant Line Cook Relationship Specialty Start Date End Date Lorena Bray MD PCP - General 10/13/15 documented as of this encounter
[2024-12-19 19:46] LABS: Hematocrit* 43.5 % (33.0-51.0); Hemoglobin* 14.0 gm/dL (12.0-16.0); Immature Granulocytes Abs Auto 0.01 K/uL (0.00-0.30); Immature Granulocytes Pct Auto 0.2 %; Lymphocytes Absolute Auto 1.43 K/uL (0.90-2.90); Mean Corpuscular HGB Conc 32 gm/dL (32-36); Mean Corpuscular Hemoglobin 31 pg (26-34); Mean Corpuscular Volume 96 fL (80-100); RDW Coefficient of Variation % 12.5 % (11.5-15.5); Red Blood Count* 4.54 m/uL (4.00-5.20); White Blood Count* 4.69 K/uL (4.50-11.00)
[2024-12-19 19:47] LABS: Slide Review Reflex No
[2024-12-19 19:59] LABS: Troponin, Point-of-Care* 0.00 ng/ml (0.01-0.04)
[2024-12-19 20:33] LABS: Albumin* 4.6 g/dL (3.3-5.0); Chloride* 105 mmol/L (96-114); Potassium* 3.3 mmol/L (3.6-5.1); Sodium* 140 mmol/L (135-149)
[2024-12-19 20:36] LABS: Alanine Aminotransferase* 68 U/L (4-35); Alkaline Phosphatase* 77 U/L (40-150); Anion Gap 11 mEq/L (7-15); Aspartate Amino Transferase* 121 U/L (12-35); Bilirubin Direct* 0.2 mg/dL (0.0-0.5); Bilirubin Total* 0.4 mg/dL (0.1-1.5); Blood Urea Nitrogen* 17 mg/dL (7-30); Calcium* 9.8 mg/dL (8.4-10.6); Carbon Dioxide* 24 mmol/L (20-32); Creatinine* 0.9 mg/dL (0.5-1.5); Est. Creatinine Clearance* 68.45; Estimated Glomerular Filt Rate 77 ml/min; Glucose* 86 mg/dL (60-115); Total Protein* 7.5 g/dL (6.0-8.3)
[2024-12-19] MEDS: ASPIRIN 81 MG TAB.CHEW 324 MG PO (20:44)
[2024-12-19 21:49] LABS: Troponin, Point-of-Care* 0.01 ng/ml (0.01-0.04)
[2024-12-19 22:20] LABS: Triglycerides* 161 mg/dL (40-149)
--- NOTE | 2024-12-19 22:43 | P.IMHP_ITS ---
Assessment and Plan Assessment and plan (1) Pancreatitis: Problem comment: - acute pancreatitis with sudden onset this evening, no CT evidence yet of pancreatitis - Cause uncertain, but I suspect a retain gallstone due to suddenness of onset and elevation of LFTs in addition to lipase. Other considerations: TG not significantly elevated, no significant alcohol use, h/o lap emiliano in 2021, on topiramate and bupropion, both of which do not have pancreatitis listed in their adverse effects profiles, but do have small incidence (about 0.7% each) of pancreatitis in post market studies. - Admit for IVF, clears tonight, NPO after [place], prn opioid and antiemetic, MRCP in am. - Obtain GGT, repeat labs in am Status: Acute (2) Hx laparoscopic cholecystectomy: Problem comment: 2021 - for symptomatic cholelithiasis, Pizarro? Status: Inactive (3) Elevated LFTs: Problem comment: - suspect retained stone vs medication related vs alcohol use - hydrate, clear liq diet - recheck in am, MRCP Status: Acute (4) Hypokalemia: Problem comment: - mild, asymptomatic, replace with one KCl tab and recheck in am Status: Acute Hospitalist- H&P: HPI History of Present Illness Time Seen by Provider: 22:43 Date Seen: 12/19/24 Chief complaint: Difficulty breathing, Chest pain Narrative: Syeda Bray is a 54 year old female who takes oral weight loss medications who was in her usual state of health this evening when she was eating at a restaraunt and experienced sudden onset of CP. She tried drinking water and standing up but it got worse, so she went outside in the cool air. Then she felt faint and had more pain. Her family came outside, and they got into the car. Her pain got worse and worse, so her family drove her to hospital. The pain is radiating like a tight belt across her upper abdomen to her back. She felt like she couldn't get comfortable, and at one point, when she got to the ER, she felt like she couldn't breathe and she was nauseous. Every position she tried made it worse. Then suddenly in the ER, her pain got better. She can still feel a tight pain across her epigastrium, like it might get worse again, but it is currently much better than it was. She also endorses a 10 year h/o a feeling at times like there is a ball of gas that sits above her anus and wakes her up in the middle of the night. She will get up and have a BM, but does not note any large amounts of flatus. It used to happen twice a year, but now happens monthly. She had a colonoscopy last year that was normal. That was a follow up colonoscopy from one she had 2 years ago (a screening colonoscopy at the age of 52) which found over 20 polyps, one of which was large. Review of Systems Status of ROS: Reports: 10 or more systems reviewed and unremarkable except as noted in History and below Medical Decision Making Medical Decision Making Code Status: Full code Has patient completed a Health Care Directive: No During This Stay, Who Would You Like To Make Decisions For You In The Event You Are Unable To Make Them For Yourself?: [facility] Surgical History (Updated 12/19/24 @ 23:48 by Billie Amor MD) History of tonsillectomy ?Z90.89 - Acquired absence of other organs (ICD-10) Hx laparoscopic cholecystectomy ?Z90.49 - Acquired absence of other specified parts of digestive tract (ICD- 10) Family History (Updated 12/19/24 @ 22:55 by Billie Amor MD) Father Heart disease Myocardial infarction Prostate cancer Mother Stroke Crohn disease Social History (Updated 12/19/24 @ 22:50 by Billie Amor MD) Narrative: Mk, sign other. Denies tobacco use. 1-2 alcoholic drinks per week. Denies recreational drugs. What is your current living situation?: I presently have a place to live Problems where you live: no known problems Problems where you live details: NA In the past 12 months, utilities in danger of being shut off: no In past 12 months, lack of transportation kept you from medical appts, meetings, work, or getting things needed for daily living: no In the past 12 mos, have been you worried that your food would run out before you had money to buy more?: never true In the past 12 mos, the food you bought just didn't last and you didn't have money to buy more?: never true Highest level of school completed/degree received: Bachelor's degree Smoking Status: Never smoker How often do you have a drink containing alcohol: monthly or less AUDIT-C Alcohol total score: 1 Non-prescribed substance use: denies use Caffeine: No How often does anyone, including family, friends and others, physically hurt you : never How often does anyone, including family, friends and others, insult or talk down to you: never How often does anyone, including family, friends and others, threaten you with harm: never How often does anyone, including family, friends and others, scream or curse at you: never Meds Home Medications and Allergies Home Medications ?Medication ?Instructions ?Recorded ?Confirmed ?Type another weight loss drug 12/19/24 History weight loss drug 12/19/24 History bupropion HCl 150 mg 24 hr tablet, 300 mg PO DAILY 10/0512/19/24 History extended release fluticasone propionate 50 1 spray intranasal Q12H 10/0512/19/24 History mcg/actuation nasal spray,suspension topiramate 50 mg tablet 50 mg PO BID 12/19/24 History Allergies Allergy/AdvReac Type Severity Reaction Status Date / Time No Known Drug Allergies Allergy Verified 12/19/24 19:59 Exam Narrative: Exam Narrative: General: No acute distress. Awake alert oriented x3. HEENT: Normocephalic atraumatic, pupils equally round and reactive to light and accommodation. Oropharynx clear. Mucous membranes are moist. No cervical lymphadenopathy, thyromegaly or carotid bruits. No JVD. Cardiovascular: Regular rate and rhythm. No murmurs, gallops, or rubs. Chest: No increased work of breathing. Clear to auscultation bilaterally. No crackles or wheezes. Abdomen: Bowel sounds present. Soft, nondistended, tender in the epigastrium and bilateral upper quadrants, no rebound tenderness or guarding. No hepatosplenomegaly or masses. Extremities: No edema, no cyanosis or clubbing. Skin: No jaundice, no pallor, no rashes on visible skin. Neuro: Grossly intact. No focal deficits. Const: Vital Signs, click to edit/add: Vital Signs - 24 hr 12/19/24 18:47 12/19/24 19:21 12/19/24 19:30 Temperature 96.3 F L Pulse Rate Pulse Rate [Pulse Oximeter] 57 L 73 Pulse Rate [Right Radial] Respiratory Rate 14 16 Blood Pressure [Le ft Arm] Blood Pressure [Ri ght Upper Arm] 100/68 132/73 Pulse Oximetry 97 99 100 Oxygen Delivery Me thod Room Air Room Air 12/19/24 19:37 12/19/24 19:50 12/19/24 22:10 Temperature 98.2 F Pulse Rate 63 Pulse Rate [Pulse Oximeter] Pulse Rate [Right Radial] 71 Respiratory Rate 18 16 Blood Pressure [Le ft Arm] 126/62 Blood Pressure [Ri ght Upper Arm] Pulse Oximetry 99 99 Oxygen Delivery Me thod Room Air 12/19/24 22:12 Temperature 98.2 F Pulse Rate Pulse Rate [Pulse Oximeter] Pulse Rate [Right Radial] 71 Respiratory Rate 16 Blood Pressure [Le ft Arm] 126/62 Blood Pressure [Ri ght Upper Arm] Pulse Oximetry 99 Oxygen Delivery Me thod Room Air Hospitalist - H&P: Result Labs Labs: Short CBC 12/19/24 Range/Units 19:35 WBC 4.69 (4.50-11.00) K/uL Hgb 14.0 (12.0-16.0) gm/dL Hct 43.5 (33.0-51.0) % Plt Count 189 (140-440) K/uL BMP 12/19/24 19:35 Sodium 140 Potassium 3.3 L Chloride 105 Carbon Dioxide 24 BUN 17 Creatinine 0.9 Glucose 86 Calcium 9.8 Cardiac Enzymes 12/19/24 Range/Units 19:35 Troponin I < 0.01 (0.01-0.04) ng/mL Liver Function 12/19/24 Range/Units 19:35 Total Bilirubin 0.4 (0.1-1.5) mg/dL Direct Bilirubin 0.2 (0.0-0.5) mg/dL AST 121 H (12-35) U/L ALT 68 H (4-35) U/L Alkaline Phosphatase 77 (40-150) U/L Albumin 4.6 (3.3-5.0) g/dL 12/19/2024 EKG: Sinus bradycardia, 51 beats per minute, otherwise normal EKG. Ordering Physician: Ghazal Mcgarry M.D. Date of Service: 12/19/24 Procedure(s): CT angio CAP aortic dissection Accession Number(s): [id number] cc: Mcgarry,Ghazal S M.D.; Provider,Not a Local~ For Patients: As a result of the Century Cures Act, medical imaging exams and procedure reports are released immediately into your electronic medical record. You may view this report before your referring provider. If you have questions, please contact your health care provider. Indication: CHEST PAIN AND BACK PAIN Technique: CTA chest/abdomen/pelvis dissection, aortic protocol, with unenhanced CT of the chest and CTA chest/abdomen/pelvis utilizing 90 mL Isovue 370 IV contrast. 3D/MIP post-processing on an independent workstation was performed. Comparison: None Findings: Heart/vasculature: The heart is normal in size. No pericardial effusion. No coronary artery calcifications. No intramural hematoma of the thoracic aorta. Trace calcific atherosclerosis of the aorta. No dissection, aneurysm, pseudoaneurysm, penetrating atherosclerotic ulcer, acute arterial occlusion, stenosis, or active arterial bleeding. Chest: No thyroid nodules. No thoracic lymphadenopathy. No focal airspace consolidation, pleural effusion, or pneumothorax. No emphysematous or fibrotic changes. No suspicious pulmonary nodules or masses. The airways are clear. Abdomen/pelvis: Status post cholecystectomy. No significant biliary ductal dilatation. The liver, spleen, pancreas, adrenal glands, kidneys, ureters, bladder, uterus, and bilateral adnexa are unremarkable. No bowel obstruction or inflammation. The appendix is normal. Moderate stool burden throughout the colon. No free air, free fluid, or abscess. No abdominopelvic lymphadenopathy. Soft tissue/musculoskeletal: Bilateral breast implants. Tiny fat containing umbilical hernia. The bones are unremarkable for the patient`s age. Impression: Unremarkable CT chest/abdomen/pelvis with no acute aortic syndrome. Please note that all CT scans at this facility use dose modulation, iterative reconstruction, and/or weight-based dosing when appropriate to reduce radiation dose to as low as reasonably achievable. Dictated by Koby Swift MD @ 12/19/2024 8:37:09 PM (Electronically Signed)
[2024-12-19 23:02] LABS: INR 0.90 (0.91-1.10); Prothrombin Time 12.9 Seconds
[2024-12-19 23:03] LABS: Gamma Glutamyl Transpeptidase* 58 U/L (8-55)
[2024-12-19] MEDS: POTASSIUM CHLORIDE 10 MEQ CAPSULE ER 20 MEQ PO (23:31)
[2024-12-19] MEDS: MELATONIN 3 MG TABLET PO (23:42)
[2024-12-19] MEDS: SODIUM CHLORIDE 0.9 % (FLUSH) 10 ML SYRINGE 5 ML IVF (23:42)
[2024-12-20] VITALS (13 sets, daily range): BP systolic 107–145; BP diastolic 54–88; PULSE 57–78; RESP 16–18; TEMP 36.6–36.9; O2SAT 96–99
--- NOTE | 2024-12-20 05:12 | PC.NURSE ---
Pt rested well this night. NPO. Pain controlled. No N/V. Afebrile. Up IND.
[2024-12-20 07:15] LABS: Chloride* 109 mmol/L (96-114)
[2024-12-20 07:16] LABS: Albumin* 3.6 g/dL (3.3-5.0); Hematocrit* 38.6 % (33.0-51.0); Hemoglobin* 12.3 gm/dL (12.0-16.0); Immature Granulocytes Abs Auto 0.00 K/uL (0.00-0.30); Immature Granulocytes Pct Auto 0.0 %; Mean Corpuscular HGB Conc 32 gm/dL (32-36); Mean Corpuscular Hemoglobin 31 pg (26-34); Mean Corpuscular Volume 97 fL (80-100); Potassium* 4.0 mmol/L (3.6-5.1); RDW Coefficient of Variation % 12.6 % (11.5-15.5); Red Blood Count* 3.98 m/uL (4.00-5.20); Sodium* 137 mmol/L (135-149); White Blood Count* 5.93 K/uL (4.50-11.00)
[2024-12-20 07:18] LABS: Blood Urea Nitrogen* 13 mg/dL (7-30); Creatinine* 0.6 mg/dL (0.5-1.5); Est. Creatinine Clearance* 102.68; Estimated Glomerular Filt Rate 108 ml/min
[2024-12-20 07:19] LABS: Alanine Aminotransferase* 210 U/L (4-35); Alkaline Phosphatase* 81 U/L (40-150); Anion Gap 7 mEq/L (7-15); Aspartate Amino Transferase* 221 U/L (12-35); Bilirubin Total* 0.5 mg/dL (0.1-1.5); Calcium* 8.7 mg/dL (8.4-10.6); Carbon Dioxide* 21 mmol/L (20-32); Glucose* 99 mg/dL (60-115); Total Protein* 5.8 g/dL (6.0-8.3)
[2024-12-20 07:31] LABS: Lymphocytes Absolute Auto 1.10 K/uL (0.90-2.90); Slide Review Reflex No
--- NOTE | 2024-12-20 12:08 | PM.IMPN1 ---
Assessment and Plan Assessment and plan (1) Pancreatitis: Problem comment: - acute pancreatitis with sudden onset this evening, no CT evidence yet of pancreatitis - Cause uncertain, but I suspect a retain gallstone due to suddenness of onset and elevation of LFTs in addition to lipase. Other considerations: TG not significantly elevated, no significant alcohol use, h/o lap emiliano in 2021, on topiramate and bupropion, both of which do not have pancreatitis listed in their adverse effects profiles, but do have small incidence (about 0.7% each) of pancreatitis in post market studies. - Admit for IVF, clears tonight, NPO after MN, prn opioid and antiemetic, MRCP in am. - Obtain GGT, repeat labs in am Diet as tolerated Status: Acute (2) Hx laparoscopic cholecystectomy: Problem comment: 2021 - for symptomatic cholelithiasis, [place]? Status: Inactive (3) Elevated LFTs: Problem comment: - suspect retained stone vs medication related vs alcohol use - hydrate, clear liq diet - recheck in am, MRCP Status: Acute (4) Hypokalemia: Problem comment: - mild, asymptomatic, replace with one KCl tab and recheck in am Status: Acute (5) Irritable bowel syndrome: Problem comment: Patient reports chronic, gradually worsening rectal pain that is relieved by having a bowel movement. Not associated with constipation. When she does have a bowel movement it tends to be loose. No bleeding. Episodes occur monthly. Previous colonoscopy is normal. Status: Suspected Plan 54-year-old female with acute pancreatitis of unknown etiology. Continue to observe in the hospital for complications. Pain medication, IV fluids, MRCP. Total Time Spent Total Time Spent: Total time spent today is 55 minutes in reviewing outside records, coordination of care and discussing with patient and other providers ongoing evaluation and management of pancreatitis Subjective Date Seen: 12/20/24 Interval history: Syeda Bray is a 54 year old female who takes oral weight loss medications who was in her usual state of health this evening when she was eating at a restaraunt and experienced sudden onset of CP. Pain occurred shortly after eating a couple pieces of pizza. She tried drinking water and standing up but it got worse, so she went outside in the cool air. Then she felt faint and had more pain. Her family came outside, and they got into the car. Her pain got worse and worse, so her family drove her to hospital. The pain is radiating like a tight belt across her upper abdomen to her back. She felt like she couldn't get comfortable, and at one point, when she got to the ER, she felt like she couldn't breathe and she was nauseous. Every position she tried made it worse. Then suddenly in the ER, her pain got better. She can still feel a tight pain across her epigastrium, like it might get worse again, but it is currently much better than it was. In the emergency department she was diagnosed with pancreatitis based on a marked lipase elevation, 29,000. CT chest abdomen pelvis was normal except for cholecystectomy. No biliary dilatation. Pancreas normal. Cholecystectomy 3 years ago. She reports drinking 1 or 2 drinks 1 or 2 times a week. No previous history of pancreatitis. Normal triglycerides. Normal calcium. Medications that she is on a not thought to be causes of pancreatitis. She had normal bili and alk-phos with elevated transaminases. She also endorses a 10 year h/o a feeling at times like there is a ball of gas that sits above her anus and wakes her up in the middle of the night. She will get up and have a BM, but does not note any large amounts of flatus. It used to happen twice a year, but now happens monthly. She had a colonoscopy last year that was normal. That was a follow up colonoscopy from one she had 2 years ago (a screening colonoscopy at the age of 52) which found over 20 polyps, one of which was large. No other medical evaluation for her recurrent bowel problems. 12/20/2024. She reports feeling a little better today. She is interested in eating and drinking today. Exam Narrative: Exam Narrative: She is alert and appears in no distress. Eyes normal. Oropharynx normal. Neck is supple without mass or adenopathy. Respirations are clear to auscultation. Cardiovascular: S1, S2, regular rate and rhythm. No murmur gallop or rub. Abdomen: Bowel sounds active. Abdomen is soft with mild to moderate epigastric tenderness. No other significant tenderness. No mass. No peritonitis. Extremities without edema. Good capillary refill and good pulses. Const: Vital Signs, click to edit/add: Vital Signs - 24 hr 12/19/24 18:47 12/19/24 19:21 12/19/24 19:30 Temperature 96.3 F L Pulse Rate Pulse Rate [Pulse Oximeter] 57 L 73 Pulse Rate [Right Radial] Respiratory Rate 14 16 Blood Pressure [Le ft Arm] Blood Pressure [Ri ght Upper Arm] 100/68 132/73 Pulse Oximetry 97 99 100 Oxygen Delivery Me thod Room Air Room Air 12/19/24 19:37 12/19/24 19:50 12/19/24 22:10 Temperature 98.2 F Pulse Rate 63 Pulse Rate [Pulse Oximeter] Pulse Rate [Right Radial] 71 Respiratory Rate 18 16 Blood Pressure [Le ft Arm] 126/62 Blood Pressure [Ri ght Upper Arm] Pulse Oximetry 99 99 Oxygen Delivery Me thod Room Air 12/19/24 22:12 12/19/24 23:54 12/19/24 23:55 Temperature 98.2 F 98.2 F Pulse Rate Pulse Rate [Pulse Oximeter] Pulse Rate [Right Radial] 71 71 Respiratory Rate 16 16 Blood Pressure [Le ft Arm] 126/62 126/62 Blood Pressure [Ri ght Upper Arm] Pulse Oximetry 99 99 99 Oxygen Delivery Me thod Room Air Room Air 12/19/24 23:56 12/19/24 23:57 12/20/24 00:25 Temperature Pulse Rate 57 L Pulse Rate [Pulse Oximeter] Pulse Rate [Right Radial] 71 Respiratory Rate 16 16 Blood Pressure [Le ft Arm] Blood Pressure [Ri ght Upper Arm] Pulse Oximetry 99 Oxygen Delivery Me thod Room Air 12/20/24 03:01 12/20/24 07:15 12/20/24 08:00 Temperature 98.2 F Pulse Rate 61 Pulse Rate [Pulse Oximeter] Pulse Rate [Right Radial] 62 Respiratory Rate 16 16 Blood Pressure [Le ft Arm] 107/54 L Blood Pressure [Ri ght Upper Arm] Pulse Oximetry 97 98 Oxygen Delivery Me thod Room Air Room Air 12/20/24 08:00 12/20/24 11:00 Temperature 98.1 F 97.9 F Pulse Rate Pulse Rate [Pulse Oximeter] Pulse Rate [Right Radial] 58 L 64 Respiratory Rate 16 16 Blood Pressure [Le ft Arm] 127/62 131/70 Blood Pressure [Ri ght Upper Arm] Pulse Oximetry 98 96 Oxygen Delivery Me thod Room Air Room Air Documenting provider has reviewed patient's vital signs: yes Labs Labs: Laboratory Results - last 24 hr 12/19/24 12/19/24 12/19/24 19:23 19:35 21:15 WBC 4.69 RBC 4.54 Hgb 14.0 Hct 43.5 MCV 96 MCH 31 MCHC 32 RDW Coeff of Fabian 12.5 Plt Count 189 Neut % (Auto) 61.0 Lymph % (Auto) 30.5 [place] % (Auto) 6.6 Eos % (Auto) 1.3 Baso % (Auto) 0.4 Neut # (Auto) 2.86 Lymph # (Auto) 1.43 [place] # (Auto) 0.30 Eos # (Auto) 0.06 Baso # (Auto) 0.02 Abs Immat Gran (auto) 0.01 Imm/Tot Granulo (auto) 0.2 INR Sodium 140 Potassium 3.3 L Chloride 105 Carbon Dioxide 24 Anion Gap 11 BUN 17 Creatinine 0.9 Estimated Creat Clear 68.45 Estimated GFR 77 Glucose 86 Hemoglobin A1c Lactate 1.9 Calcium 9.8 Magnesium Total Bilirubin 0.4 Direct Bilirubin 0.2 GGT AST 121 H ALT 68 H Alkaline Phosphatase 77 Troponin I < 0.01 C-Reactive Protein < 0.5 L Total Protein 7.5 Albumin 4.6 Triglycerides Lipase 70990 H Lab Acknowledgement POC Troponin I 0.00 L 0.01 12/19/24 12/19/24 12/20/24 21:30 22:46 06:10 WBC 5.93 RBC 3.98 L Hgb 12.3 Hct 38.6 MCV 97 MCH 31 MCHC 32 RDW Coeff of Fabian 12.6 Plt Count 159 Neut % (Auto) 73.1 H Lymph % (Auto) 19.2 L [place] % (Auto) 6.4 Eos % (Auto) 1.0 Baso % (Auto) 0.3 Neut # (Auto) 4.30 Lymph # (Auto) 1.10 [place] # (Auto) 0.40 Eos # (Auto) 0.06 Baso # (Auto) 0.02 Abs Immat Gran (auto) 0.00 Imm/Tot Granulo (auto) 0.0 INR 0.90 L Sodium 137 Potassium 4.0 Chloride 109 Carbon Dioxide 21 Anion Gap 7 BUN 13 Creatinine 0.6 Estimated Creat Clear 102.68 Estimated GFR 108 Glucose 99 Hemoglobin A1c 5.0 Lactate Calcium 8.7 Magnesium 2.0 Total Bilirubin 0.5 Direct Bilirubin GGT 58 H AST 221 H ALT 210 H Alkaline Phosphatase 81 Troponin I < 0.01 C-Reactive Protein Total Protein 5.8 L Albumin 3.6 Triglycerides 161 H Lipase 5018 H Lab Acknowledgement Test Added POC Troponin I 12/20/24 10:24 WBC RBC Hgb Hct MCV MCH MCHC RDW Coeff of Fabian Plt Count Neut % (Auto) Lymph % (Auto) [place] % (Auto) Eos % (Auto) Baso % (Auto) Neut # (Auto) Lymph # (Auto) [place] # (Auto) Eos # (Auto) Baso # (Auto) Abs Immat Gran (auto) Imm/Tot Granulo (auto) INR Sodium Potassium Chloride Carbon Dioxide Anion Gap BUN Creatinine Estimated Creat Clear Estimated GFR Glucose Hemoglobin A1c Lactate Calcium Magnesium Total Bilirubin Direct Bilirubin GGT AST ALT Alkaline Phosphatase Troponin I C-Reactive Protein Total Protein Albumin Triglycerides Lipase Lab Acknowledgement Test Added POC Troponin I
--- NOTE | 2024-12-20 14:21 | PM.GSCN ---
History of Present Illness Consult details Date Seen: 12/20/24 Consult date: 12/20/24 Narrative: The patient is a 54-year-old female who presented to the emergency department last evening with severe abdominal pain radiating to her back. She was found to have pancreatitis. She states that she was down in [place] visiting her daughter who is a college student. She was eating pizza and then shortly thereafter she developed this severe pain. When it came on it was 8/10. It was so severe that she could not take a deep breath. Initially she thought it may be acid reflux and she has had issues with this in the past. She tried taking Tums but it did not help. She felt faint and so her thought the car and they started driving home. She was nauseated because of the severity of the pain. She lives in [place] and normally doctors in the [facility] system. The pain was so severe that they decided to stop at the hospital here. Again she states that the pain wraps around to her back. She did have an episode overnight where the pain went up to a 7 on a 10, however the pain is much better overall. She previously underwent cholecystectomy in 2020. This was done for acute cholecystitis. She states that that pain came on slowly over the course of a day but did feel similar. Review of outside records showed that she did not have choledocholithiasis and had a normal lipase. This pain is much more severe. She states that she drinks alcohol a few times a week. She has never had any other episodes but states that she does have recurrent heartburn and indigestion as well as irritable bowel symptoms. She states that she tends to have a fair amount of gas pain as well. She has had a colonoscopy but never an upper endoscopy. She has not seen a boring machine operator vertical. [facility] Medical History (Updated 12/20/24 @ 12:17 by Shawn Reddy MD) Irritable bowel syndrome ?K58.9 - Irritable bowel syndrome, unspecified (ICD-10) Surgical History (Updated 12/19/24 @ 23:48 by Billie Amor MD) History of tonsillectomy ?Z90.89 - Acquired absence of other organs (ICD-10) Hx laparoscopic cholecystectomy ?Z90.49 - Acquired absence of other specified parts of digestive tract (ICD-10) Family History (Updated 12/19/24 @ 22:55 by Billie Amor MD) Father Heart disease Myocardial infarction Prostate cancer Mother Stroke Crohn disease Social History (Updated 12/19/24 @ 22:50 by Billie Amor MD) Narrative: Mk, sign other. Denies tobacco use. 1-2 alcoholic drinks per week. Denies recreational drugs. What is your current living situation?: I presently have a place to live Problems where you live: no known problems Problems where you live details: NA In the past 12 months, utilities in danger of being shut off: no In past 12 months, lack of transportation kept you from medical appts, meetings, work, or getting things needed for daily living: no In the past 12 mos, have been you worried that your food would run out before you had money to buy more?: never true In the past 12 mos, the food you bought just didn't last and you didn't have money to buy more?: never true Highest level of school completed/degree received: Bachelor's degree Smoking Status: Never smoker How often do you have a drink containing alcohol: monthly or less AUDIT-C Alcohol total score: 1 Non-prescribed substance use: denies use Caffeine: No How often does anyone, including family, friends and others, physically hurt you: never How often does anyone, including family, friends and others, insult or talk down to you: never How often does anyone, including family, friends and others, threaten you with harm: never How often does anyone, including family, friends and others, scream or curse at you: never Meds Home Medications and Allergies Home Medications ?Medication ?Instructions ?Recorded ?Confirmed ?Type bupropion HCl 150 mg 24 hr tablet, 300 mg PO DAILY 12/19/24 12/19/24 History extended release topiramate 50 mg tablet 50 mg PO BID 12/19/24 12/19/24 History valacyclovir 1 gram tablet 2,000 mg PO BID 12/20/24 12/20/24 History Allergies Allergy/AdvReac Type Severity Reaction Status Date / Time No Known Drug Allergies Allergy Verified 12/19/24 19:59 Exam Narrative: Exam Narrative: General appearance: Alert, cooperative, and in no distress Eyes: PERRLA, eye lids clear, and sclera white HENT Head: Normocephalic Ears: External ears normal Pulmonary: Breathing nonlabored on room air Cardiovascular Heart: Regular rate Extremities: warm and well perfused Gastrointestinal Abdominal: No obvious scars. Abdomen is soft. Mildly tender in the upper abdomen. Neurologic: No focal deficits Psychiatric: Alert, oriented, cooperative, normal affect. Const: Vital Signs, click to edit/add: Vital Signs - 24 hr 12/19/24 18:47 12/19/24 19:21 12/19/24 19:30 Temperature 96.3 F L Pulse Rate Pulse Rate [Pulse Oximeter] 57 L 73 Pulse Rate [Right Radial] Respiratory Rate 14 16 Blood Pressure [Le ft Arm] Blood Pressure [Ri ght Upper Arm] 100/68 132/73 Pulse Oximetry 97 99 100 Oxygen Delivery Me thod Room Air Room Air 12/19/24 19:37 12/19/24 19:50 12/19/24 22:10 Temperature 98.2 F Pulse Rate 63 Pulse Rate [Pulse Oximeter] Pulse Rate [Right Radial] 71 Respiratory Rate 18 16 Blood Pressure [Le ft Arm] 126/62 Blood Pressure [Ri ght Upper Arm] Pulse Oximetry 99 99 Oxygen Delivery Ga thod Room Air 12/19/24 22:12 12/19/24 23:54 12/19/24 23:55 Temperature 98.2 F 98.2 F Pulse Rate Pulse Rate [Pulse Oximeter] Pulse Rate [Right Radial] 71 71 Respiratory Rate 16 16 Blood Pressure [Le ft Arm] 126/62 126/62 Blood Pressure [Ri ght Upper Arm] Pulse Oximetry 99 99 99 Oxygen Delivery Ga thod Room Air Room Air 12/19/24 23:56 12/19/24 23:57 12/20/24 00:25 Temperature Pulse Rate 57 L Pulse Rate [Pulse Oximeter] Pulse Rate [Right Radial] 71 Respiratory Rate 16 16 Blood Pressure [Le ft Arm] Blood Pressure [Ri ght Upper Arm] Pulse Oximetry 99 Oxygen Delivery Me thod Room Air 12/20/24 03:01 12/20/24 07:15 12/20/24 08:00 Temperature 98.2 F Pulse Rate 61 Pulse Rate [Pulse Oximeter] Pulse Rate [Right Radial] 62 Respiratory Rate 16 16 Blood Pressure [Le ft Arm] 107/54 L Blood Pressure [Ri ght Upper Arm] Pulse Oximetry 97 98 Oxygen Delivery Me thod Room Air Room Air 12/20/24 08:00 12/20/24 11:00 Temperature 98.1 F 97.9 F Pulse Rate Pulse Rate [Pulse Oximeter] Pulse Rate [Right Radial] 58 L 64 Respiratory Rate 16 16 Blood Pressure [Le ft Arm] 127/62 131/70 Blood Pressure [Ri ght Upper Arm] Pulse Oximetry 98 96 Oxygen Delivery Me thod Room Air Room Air Results Labs Labs: Labs on admission showed a lipase of 29,000. This morning it was 5000. AST on admission was 121, this morning 221 ALT on admission was 68 and this morning 210. Bilirubin and alkaline phosphatase normal. Triglycerides were 161 CRP was normal White blood cell count is normal. Imaging Abdomen CT scan report/results: report reviewed and image reviewed Additional studies: Indication: CHEST PAIN AND BACK PAIN Technique: CTA chest/abdomen/pelvis dissection, aortic protocol, with unenhanced CT of the chest and CTA chest/abdomen/pelvis utilizing 90 mL Isovue 370 IV contrast. 3D/MIP post-processing on an independent workstation was performed. Comparison: None Findings: Heart/vasculature: The heart is normal in size. No pericardial effusion. No coronary artery calcifications. No intramural hematoma of the thoracic aorta. Trace calcific atherosclerosis of the aorta. No dissection, aneurysm, pseudoaneurysm, penetrating atherosclerotic ulcer, acute arterial occlusion, stenosis, or active arterial bleeding. Chest: No thyroid nodules. No thoracic lymphadenopathy. No focal airspace consolidation, pleural effusion, or pneumothorax. No emphysematous or fibrotic changes. No suspicious pulmonary nodules or masses. The airways are clear. Abdomen/pelvis: Status post cholecystectomy. No significant biliary ductal dilatation. The liver, spleen, pancreas, adrenal glands, kidneys, ureters, bladder, uterus, and bilateral adnexa are unremarkable. No bowel obstruction or inflammation. The appendix is normal. Moderate stool burden throughout the colon. No free air, free fluid, or abscess. No abdominopelvic lymphadenopathy. Soft tissue/musculoskeletal: Bilateral breast implants. Tiny fat containing umbilical hernia. The bones are unremarkable for the patient`s age. Impression: Unremarkable CT chest/abdomen/pelvis with no acute aortic syndrome. Dictated by Kboy Swift MD @ 12/19/2024 8:37:09 PM Progress Note:A&P Assessment and plan (1) Hx laparoscopic cholecystectomy: Status: Inactive (2) Irritable bowel syndrome: Status: Suspected (3) Elevated LFTs: Status: Acute (4) Pancreatitis: Status: Acute Plan The patient is a 52-year-old female who is several years status post laparoscopic cholecystectomy for acute cholecystitis who now presents with pancreatitis and elevation of AST and ALT. Choledocholithiasis after cholecystectomy is rare, however could fit the picture. I do recommend an MRCP. This has been scheduled for tomorrow. This would also rule out pancreatic mass or cyst. Alcohol or toxin exposure is also in the differential given her concomitant transaminase elevation. The patient denies any ingestion. Triglycerides are mildly elevated however not elevated enough to cause pancreatitis. Autoimmune pancreatitis would be rare. If MRCP is normal then patient can be managed per usual for pancreatitis with advancement of diet when pain has improved. She can follow-up with her primary care provider. She may follow up with GI, however this may not be helpful if she were to have a 2nd event. Can discuss this with her primary care provider after discharge. If she is found to have a pancreatic lesion or common bile duct stone then she should be transferred/referred for ERCP or endoscopic ultrasound.
--- NOTE | 2024-12-20 17:58 | PC.NURSE ---
Shift Summary: patient pleasant and cooperative. Advancing diet as tolerated, tolerating regular/soft foods in small amounts. Denies pain with meals. Vitals stable and WNL, afebrile. Independent in room.
[2024-12-20] MEDS: MELATONIN 3 MG TABLET PO (20:42)
[2024-12-20] MEDS: SODIUM CHLORIDE 0.9 % (FLUSH) 10 ML SYRINGE 5 ML IVF (20:42)
[2024-12-21 02:50] VITALS: BP 133/73; PULSE 63; RESP 16; TEMP 36.8; O2SAT 97
[2024-12-21 07:55] VITALS: BP 131/71; PULSE 56; RESP 16; TEMP 36.9; O2SAT 97
[2024-12-21 07:58] VITALS: RESP 16; O2SAT 97
--- NOTE | 2024-12-21 08:00 | CRLHL7_ITS ---
For Patients: As a result of the Century Cures Act, medical imaging exams and procedure reports are released immediately into your electronic medical record. You may view this report before your referring provider. If you have questions, please contact your health care provider. Indication: Pancreatitis Technique: Multiplanar multisequence images were obtained with and without gadolinium. Patient received 15 cc Dotarem intravenously for the exam. Comparison: Abdomen and pelvis CT 12/19/2024 Findings: Lung bases: Mild discoid atelectasis lower lobes. Bilateral breast implants. Liver: Normal in contour with a 6 millimeter cyst within the right lobe of the liver. Biliary: Susceptibility artifact in the gallbladder fossa consistent with prior cholecystectomy. Normal diameter common duct for a postcholecystectomy patient at 9 millimeters with mild intrahepatic biliary dilatation. Normal tapering of the distal common duct suggesting this represents reservoir effect status post cholecystectomy. No choledocholithiasis seen. Spleen: Unremarkable. Pancreas: Normal diameter pancreatic duct with conventional anatomy. No discrete lesion or abnormal enhancement. Mild reticular increased T2 signal within the body of the pancreas (series 9, image 19; series 8, image 13). Trace peripancreatic fluid. Adrenal glands: Unremarkable. Kidneys: Unremarkable. Bowel: Unremarkable. Vascular: Unremarkable. Impression: 1. Increased T2 signal within the body of the pancreas consistent with acute interstitial edematous pancreatitis. Trace peripancreatic fluid without acute fluid collection or necrosis. 2. Status post cholecystectomy with mild intrahepatic biliary dilatation, favor reservoir effect status post cholecystectomy as above. No choledocholithiasis seen. Dictated by Pilo Weldon MD @ 12/21/2024 12:45:53 PM (Electronically Signed)
[2024-12-21] MEDS: ACETAMINOPHEN 325 MG TABLET 650 MG PO ×2 (08:11→13:59)
[2024-12-21] MEDS: SODIUM CHLORIDE 0.9 % (FLUSH) 10 ML SYRINGE 5 ML IVF (08:17)
[2024-12-21 09:51] LABS: Hematocrit* 38.6 % (33.0-51.0); Hemoglobin* 12.4 gm/dL (12.0-16.0); Immature Granulocytes Abs Auto 0.00 K/uL (0.00-0.30); Immature Granulocytes Pct Auto 0.0 %; Mean Corpuscular HGB Conc 32 gm/dL (32-36); Mean Corpuscular Hemoglobin 31 pg (26-34); Mean Corpuscular Volume 96 fL (80-100); RDW Coefficient of Variation % 12.4 % (11.5-15.5); Red Blood Count* 4.03 m/uL (4.00-5.20); White Blood Count* 5.63 K/uL (4.50-11.00)
[2024-12-21 09:53] LABS: Lymphocytes Absolute Auto 1.10 K/uL (0.90-2.90); Slide Review Reflex No
[2024-12-21 10:04] LABS: Albumin* 3.9 g/dL (3.3-5.0)
[2024-12-21 10:07] LABS: Alanine Aminotransferase* 211 U/L (4-35); Alkaline Phosphatase* 118 U/L (40-150); Aspartate Amino Transferase* 123 U/L (12-35); Bilirubin Direct* 0.1 mg/dL (0.0-0.5); Bilirubin Total* 0.6 mg/dL (0.1-1.5); Total Protein* 6.5 g/dL (6.0-8.3)
[2024-12-21 10:24] VITALS: BP 123/63; PULSE 63; RESP 16; TEMP 36.6; O2SAT 95
--- NOTE | 2024-12-21 14:22 | PC.NURSE ---
Pt discharged @ 1421 via ambulation, accompanied by daughter. Going back to home. IV removed. Discharge forms signed. Belongings signed. Pt reported understanding of discharge instruction. Final room check complete.
--- NOTE | 2024-12-21 15:42 | P.DS_ITS ---
DS: Providers Provider Date Seen: 12/21/24 Date of admission: 12/19/24 21:52 Primary care physician: Not a Local Provider Admitting Clinician: Billie Amor MD Attending Physician on discharge: Billie Amor MD Date of Discharge: 12/21/24 DS: Diagnosis Discharge Diagnosis (1) Pancreatitis: Status: Acute Problem details: - acute pancreatitis with sudden onset the day of admission. no CT evidence yet of pancreatitis. MRI shows evidence of pancreatitis no other findings or cause for pancreatitis. Patient reports minimal alcohol consumption. Previous cholecystectomy. Calcium and triglycerides are normal. Treated conservatively with IV pain medicines and IV fluids initially. Then transition to oral fluids. Today pain is resolved. (2) Elevated LFTs: Status: Acute Problem details: Patient had elevation of transaminases without elevation of alk-phos or bilirubin. Cause for this was uncertain. (3) Irritable bowel syndrome: Status: Suspected Problem details: Patient reports chronic, gradually worsening rectal pain that is relieved by having a bowel movement. Not associated with constipation. When she does have a bowel movement it tends to be loose. No bleeding. Episodes occur monthly. Previous colonoscopy is normal. (4) Hx laparoscopic cholecystectomy: Status: Inactive Problem details: 2021 - for symptomatic cholelithiasis, [place]? DS: Summary Hospital Course Hospital Course: Syeda Bray is a 54 year old female who takes oral weight loss medications who was in her usual state of health this evening when she was eating at a restaraunt and experienced sudden onset of CP. Pain occurred shortly after eating a couple pieces of pizza. She tried drinking water and standing up but it got worse, so she went outside in the cool air. Then she felt faint and had more pain. Her family came outside, and they got into the car. Her pain got worse and worse, so her family drove her to hospital. The pain is radiating like a tight belt across her upper abdomen to her back. She felt like she couldn't get comfortable, and at one point, when she got to the ER, she felt like she couldn't breathe and she was nauseous. Every position she tried made it worse. Then suddenly in the ER, her pain got better. She can still feel a tight pain across her epigastrium, like it might get worse again, but it is currently much better than it was. In the emergency department she was diagnosed with pancreatitis based on a marked lipase elevation, 29,000. CT chest abdomen pelvis was normal except for cholecystectomy. No biliary dilatation. Pancreas normal. Cholecystectomy 3 years ago. She reports drinking 1 or 2 drinks 1 or 2 times a week. No previous history of pancreatitis. Normal triglycerides. Normal calcium. Medications that she is on a not thought to be causes of pancreatitis. She had normal bili and alk-phos with elevated transaminases. She also endorses a 10 year h/o a feeling at times like there is a ball of gas that sits above her anus and wakes her up in the middle of the night. She will get up and have a BM, but does not note any large amounts of flatus. It used to happen twice a year, but now happens monthly. She had a colonoscopy last year that was normal. That was a follow up colonoscopy from one she had 2 years ago (a screening colonoscopy at the age of 52) which found over 20 polyps, one of which was large. No other medical evaluation for her recurrent bowel problems. Status at Discharge Overall status at discharge: patient is back to baseline Time Spent with Patient Time attestation: Total time spent providing and/or coordinating discharge services: 35 minutes Time spent: Greater than 30 minutes Exam Narrative: Exam Narrative: She is alert and appears in no distress. She appears comfortable. Respirations are clear to auscultation. Cardiovascular: S1, S2, regular rate and rhythm. Abdomen: Bowel sounds active. Abdomen is soft without tenderness or mass. Const: Vital Signs, click to edit/add: Vital Signs - 24 hr 12/20/24 19:04 12/20/24 22:11 12/20/24 22:12 Temperature 98.4 F 98.4 F Pulse Rate [Right Radial] 78 78 Respiratory Rate 16 16 Blood Pressure [Le ft Arm] 145/88 H 125/65 Pulse Oximetry 98 97 97 Oxygen Delivery Me thod Room Air Room Air 12/20/24 22:13 12/20/24 22:14 12/21/24 02:50 Temperature 98.3 F Pulse Rate [Right Radial] 78 63 Respiratory Rate 16 16 16 Blood Pressure [Le ft Arm] 133/73 Pulse Oximetry 97 97 Oxygen Delivery Me thod Room Air Room Air 12/21/24 07:55 12/21/24 07:58 12/21/24 10:24 Temperature 98.4 F 98 F Pulse Rate [Right Radial] 56 L 63 Respiratory Rate 16 16 16 Blood Pressure [Le ft Arm] 131/71 123/63 Pulse Oximetry 97 97 95 Oxygen Delivery Me thod Room Air Room Air Room Air Documenting provider has reviewed patient's vital signs: yes DS: Data Data Completed and Pending Labs on day of discharge: Labs from last 24 hours 12/21/24 09:40 WBC 5.63 RBC 4.03 Hgb 12.4 Hct 38.6 MCV 96 MCH 31 MCHC 32 RDW Coeff of Fabian 12.4 Plt Count 162 Neut % (Auto) 73.2 H Lymph % (Auto) 19.9 L [place] % (Auto) 5.3 Eos % (Auto) 1.2 Baso % (Auto) 0.4 Neut # (Auto) 4.10 Lymph # (Auto) 1.10 [place] # (Auto) 0.30 Eos # (Auto) 0.07 Baso # (Auto) 0.02 Abs Immat Gran (auto) 0.00 Imm/Tot Granulo (auto) 0.0 Total Bilirubin 0.6 Direct Bilirubin 0.1 AST 123 H ALT 211 H Alkaline Phosphatase 118 Total Protein 6.5 Albumin 3.[address] Chest/Ab/Pelvis: Radiologist's impression: Indication: CHEST PAIN AND BACK PAIN Technique: CTA chest/abdomen/pelvis dissection, aortic protocol, with unenhanced CT of the chest and CTA chest/abdomen/pelvis utilizing 90 mL Isovue 370 IV contrast. 3D/MIP post-processing on an independent workstation was performed. Comparison: None Findings: Heart/vasculature: The heart is normal in size. No pericardial effusion. No coronary artery calcifications. No intramural hematoma of the thoracic aorta. Trace calcific atherosclerosis of the aorta. No dissection, aneurysm, pseudoaneurysm, penetrating atherosclerotic ulcer, acute arterial occlusion, stenosis, or active arterial bleeding. Chest: No thyroid nodules. No thoracic lymphadenopathy. No focal airspace consolidation, pleural effusion, or pneumothorax. No emphysematous or fibrotic changes. No suspicious pulmonary nodules or masses. The airways are clear. Abdomen/pelvis: Status post cholecystectomy. No significant biliary ductal dilatation. The liver, spleen, pancreas, adrenal glands, kidneys, ureters, bladder, uterus, and bilateral adnexa are unremarkable. No bowel obstruction or inflammation. The appendix is normal. Moderate stool burden throughout the colon. No free air, free fluid, or abscess. No abdominopelvic lymphadenopathy. Soft tissue/musculoskeletal: Bilateral breast implants. Tiny fat containing umbilical hernia. The bones are unremarkable for the patient`s age. Impression: Unremarkable CT chest/abdomen/pelvis with no acute aortic syndrome. MRI - abdomen: Radiologist's impression: Indication: Pancreatitis Technique: Multiplanar multisequence images were obtained with and without gadolinium. Patient received 15 cc Dotarem intravenously for the exam. Comparison: Abdomen and pelvis CT 12/19/2024 Findings: Lung bases: Mild discoid atelectasis lower lobes. Bilateral breast implants. Liver: Normal in contour with a 6 millimeter cyst within the right lobe of the liver. Biliary: Susceptibility artifact in the gallbladder fossa consistent with prior cholecystectomy. Normal diameter common duct for a postcholecystectomy patient at 9 millimeters with mild intrahepatic biliary dilatation. Normal tapering of the distal common duct suggesting this represents reservoir effect status post cholecystectomy. No choledocholithiasis seen. Spleen: Unremarkable. Pancreas: Normal diameter pancreatic duct with conventional anatomy. No discrete lesion or abnormal enhancement. Mild reticular increased T2 signal within the body of the pancreas (series 9, image 19; series 8, image 13). Trace peripancreatic fluid. Adrenal glands: Unremarkable. Kidneys: Unremarkable. Bowel: Unremarkable. Vascular: Unremarkable. Impression: 1. Increased T2 signal within the body of the pancreas consistent with acute interstitial edematous pancreatitis. Trace peripancreatic fluid without acute fluid collection or necrosis. 2. Status post cholecystectomy with mild intrahepatic biliary dilatation, favor reservoir effect status post cholecystectomy as above. No choledocholithiasis seen. Discharge Plan Discharge Disposition: Home, Self-Care Date of Admission: 12/19/24 21:52 Attending Provider on Discharge: Shawn Reddy Primary Care Provider: Provider,Not a Local Condition: Stable Anticipated Discharge Date/Time: 12/21/24 12:57 Discharge Medications: Continued bupropion HCl 150 mg tablet extended release 24 hr 300 mg PO DAILY topiramate 50 mg tablet 50 mg PO BID valacyclovir 1 gram tablet 2,000 mg PO BID Rx Instructions: 2 tabs at onset of cold sore, then 2 tabs 12 hours later Discharge Orders: Discharge Order (Routine); Ordered 12/21/24 Ordered By: Shawn Reddy Patient Education: Pancreatitis (DC) Activity Level: No Restrictions Discharge Diet: Regular Follow Up Appointments: Provider,Not a Local [Primary Care Provider, Family Practice] Referral Note: Follow-up with your primary care provider for recheck in 2 weeks Forms: [facility] Info Instructions
== END 2024-12-21 14:21 | disposition home or self-care (01) | DRG 440 ==
LOC: ED 21:37 → MEDSURG 21:52
PROVIDERS: Family Medicine; Admitting Provider Family Medicine; Emergency Provider Family Medicine; Visit Provider Family Medicine
DX: K85.90 Acute pancreatitis without necrosis or infection, unspecified (principal); Z90.49 Acquired absence of other specified parts of digestive tract; K58.9 Irritable bowel syndrome, unspecified; E87.6 Hypokalemia; R74.01 Elevation of levels of liver transaminase levels
CPT/HCPCS: 36415; 71275; 74174; 74183; 80048; 80053; 80076; 82977; 83036; 83605; 83690; 83735; 84478; 84484; 85025; 85610; 86140; 93005; 94761; 99284; 99285; A9270; A9575; J1171; J7030; Q9967